=== PATIENT | female | born 1985 | race Caucasian/White ===

== ENCOUNTER 2020-09-07 10:39 | Outpatient (REF) | payer SELFPAY ==
[2020-09-07 14:23] LABS: Alanine Aminotransferase 19 U/L (0-31); Albumin Level 4.6 g/dL (3.5-5.0); Alkaline Phosphatase 39 U/L (39-117); Anion Gap 15 (12-20); Aspartate Amino Transferase 22 U/L (5-31); Bilirubin Total 0.3 mg/dL (0.0-1.0); Blood Urea Nitrogen 18 mg/dL (9-16); Calcium 9.3 mg/dL (8.4-10.2); Carbon Dioxide 26 mmol/L (22-29); Chloride 100 mmol/L (96-108); Cholesterol 202 mg/dL; Estimated Glomerular Filt Rate > 60; Glucose Random 80 mg/dL (60-115); HDL Cholesterol 60 mg/dL; LDL Cholesterol Calculated 131 mg/dl; Potassium 3.8 mmol/l (3.3-5.1); Sodium 137 mmol/L (135-145); Total Protein 7.4 g/dL (6.5-8.0); Triglycerides 55 mg/dL
[2020-09-07 15:46] LABS: Free T4 (Free Thyroxine) 0.94 ng/dL (0.71-1.85)
== END 2020-09-07 10:40 | disposition home or self-care (01) ==
LOC: HO.HMGCLDS 10:39
PROVIDERS: PCP Nurse Practitioner Family; Visit Provider Nurse Practitioner Family
DX: E03.9 Hypothyroidism, unspecified (principal)
CPT/HCPCS: 36415; 80053; 80061; 84439; 84443

== ENCOUNTER 2020-11-17 08:43 | Outpatient (REF) | payer BC, SELFPAY ==
[2020-11-17 17:49] LABS: TSH reflex Free T4 4.14 uIU/mL (0.32-4.0)
[2020-11-17 18:36] LABS: Free T4 (Free Thyroxine) 0.98 ng/dL (0.71-1.85)
== END 2020-11-17 08:44 | disposition home or self-care (01) ==
LOC: HO.HMGCLDS 08:43
PROVIDERS: PCP Nurse Practitioner Family; Visit Provider Nurse Practitioner Family
DX: E03.9 Hypothyroidism, unspecified (principal)
CPT/HCPCS: 36415; 84439; 84443

== ENCOUNTER 2022-09-21 18:21 | Outpatient (REF) | payer OTHER, SELFPAY ==
[2022-09-21 18:35] LABS: Appearance Urine Clear; Color Urine Yellow; Glucose Urine UA Negative (Negative); Leukocyte Esterase Urine Trace (Negative); Nitrite Urine Negative (Negative); PH 5.5 (5.0-9.0); UMIC TRIGGER UACC YES; Urine Blood Negative (Negative); Urine Ketones 15 mg/dL (Negative); Urine Protein Negative (Neg-Trace)
[2022-09-21 18:44] LABS: Bacteria Urine None Seen (None Seen); Hyaline Casts Urine 0-2 /LPF (0-2); RBC Urine 0-2 /HPF (0-2); Squamous Epithelial Cell Urine 0-2 /HPF (0-2); WBC Urine 0-5 /HPF (0-5)
== END 2022-09-21 18:22 | disposition home or self-care (01) ==
LOC: HO.LNP 18:21
PROVIDERS: Visit Provider Nurse Practitioner Family
DX: N39.0 Urinary tract infection, site not specified (principal)
CPT/HCPCS: 81001

== ENCOUNTER 2022-10-17 07:00 | Outpatient (REF) | payer OTHER, SELFPAY ==
[2022-10-17 11:31] LABS: MANUAL DIFF FLAG NO
[2022-10-17 11:38] LABS: Basophils Absolute Auto 0.1 X10*3/uL (0.0-0.2); Basophils Percent Auto 0.7 % (0-2); Eosinophils Absolute Auto 0.4 X10*3/uL (0.0-0.4); Eosinophils Percent Auto 5.3 % (0-4); Imm Gran Abs Auto 0.02 X10*3/uL (0.00-0.03); Imm Gran Pct Auto 0.3 % (0.0-0.4); Lymphocytes Absolute Auto 1.8 X10*3/uL (1.2-4.9); Lymphocytes Percent Auto 26.5 % (20-40); Mean Corpuscular HGB Conc 31.6 g/dl (31.0-35.0); Mean Corpuscular Hemoglobin 28.9 pg (27.0-33.0); Mean Corpuscular Volume 91.6 fL (80.0-98.0); Mean Platelet Volume 9.1 fL (9.4-12.3); Monocytes Absolute Auto 0.6 X10*3/uL (0.1-1.2); Monocytes Percent Auto 8.2 % (2-11); Platelet Count 507 X10*3/uL (160-400); Red Blood Count 4.15 X10*6/uL (4.20-5.50); Red Cell Distribution Width 13.6 % (11.0-16.0); White Blood Count 6.8 X10*3/uL (4.8-10.8)
[2022-10-17 12:02] LABS: Appearance Urine Clear; Color Urine Yellow; Glucose Urine UA Negative (Negative); Leukocyte Esterase Urine Negative (Negative); Nitrite Urine Negative (Negative); Specific Gravity - Urine 1.015 (1.005-1.025); Urine Blood Negative (Negative); Urine Ketones Negative (Negative); Urine Protein Negative (Neg-Trace)
[2022-10-17 12:04] LABS: Alanine Aminotransferase 51 U/L (0-31); Albumin Level 3.7 g/dL (3.5-5.0); Alkaline Phosphatase 61 U/L (39-117); Anion Gap 11 (12-20); Aspartate Amino Transferase 49 U/L (5-31); Bilirubin Total 0.3 mg/dL (0.0-1.0); Blood Urea Nitrogen 11 mg/dL (9-16); Calcium 9.2 mg/dL (8.4-10.2); Carbon Dioxide 31 mmol/L (22-29); Chloride 101 mmol/L (96-108); Cholesterol 221 mg/dL; Estimated Glomerular Filt Rate > 60; Glucose Fasting 96 mg/dL (60-99); HDL Cholesterol 44 mg/dL; LDL Cholesterol Calculated 141 mg/dl; Lipase 21 U/L (8-78); Potassium 4.3 mmol/L (3.3-5.1); Sodium 139 mmol/L (135-145); Total Protein 7.6 g/dL (6.5-8.0); Triglycerides 182 mg/dL
[2022-10-17 12:13] LABS: TSH reflex Free T4 15.66 uIU/mL (0.32-4.0)
[2022-10-17 14:15] LABS: Free T4 (Free Thyroxine) 0.89 ng/dL (0.71-1.85)
== END 2022-10-17 07:01 | disposition home or self-care (01) ==
LOC: HO.HMGCLDS 07:00
PROVIDERS: PCP Nurse Practitioner Family; Visit Provider Nurse Practitioner Family
DX: R10.9 Unspecified abdominal pain (principal); R74.8 Abnormal levels of other serum enzymes
CPT/HCPCS: 36415; 80053; 80061; 81003; 83690; 84439; 84443; 85025

== ENCOUNTER 2022-10-30 08:32 | Outpatient (REF) | payer OTHER, SELFPAY ==
--- NOTE | ~2022-10-30 | US_ITS ---
EXAMINATION: US ABDOMEN COMPLETE CLINICAL INFORMATION: Abnormal levels of other serum enzymes. COMPARISON: None available. TECHNIQUE: Real-time imaging of the abdominal viscera. FINDINGS: PANCREAS: Normal. ABDOMINAL AORTA: The proximal, mid, and distal segments are normal in caliber. INFERIOR VENA CAVA: Visualized portions are normal. LIVER: The liver is normal in size. The liver contour is normal. There is mild increased liver echogenicity. No focal hepatic lesion. There is no intrahepatic biliary duct dilatation seen. GALLBLADDER: Normal. The gallbladder is physiologically distended without evidence of stones, sludge, polyps, wall thickening or pericholecystic fluid. COMMON BILE DUCT: Normal in caliber measuring 0.3 cm in diameter. RIGHT KIDNEY: Normal. No hydronephrosis. No renal calculi or focal parenchymal lesions. The kidney measures 11.1 cm in maximum dimension. LEFT KIDNEY: Normal. No hydronephrosis. No renal calculi or focal parenchymal lesions. The kidney measures 10.4 cm in maximum dimension. SPLEEN: Normal. The spleen measures 9.1 cm in maximum dimension. FREE FLUID: None. US/US abdomen complete IMPRESSION: Mild hepatic steatosis without focal lesion. The rest of the abdominal ultrasound is unremarkable.
== END 2022-10-30 08:33 | disposition home or self-care (01) ==
LOC: HO.HMGCX 08:32
PROVIDERS: PCP Nurse Practitioner Family; Visit Provider Nurse Practitioner Family
DX: R74.8 Abnormal levels of other serum enzymes (principal)
CPT/HCPCS: 76700

== ENCOUNTER 2023-01-15 07:54 | Outpatient (REF) | payer OTHER, SELFPAY ==
[2023-01-15 11:15] LABS: MANUAL DIFF FLAG NO
[2023-01-15 11:29] LABS: Appearance Urine Clear; Color Urine Yellow; Glucose Urine UA Negative (Negative); Leukocyte Esterase Urine Negative (Negative); Nitrite Urine Negative (Negative); Urine Blood Negative (Negative); Urine Ketones Negative (Negative); Urine Protein Negative (Neg-Trace)
[2023-01-15 11:31] LABS: Basophils Percent Auto 0.3 % (0-2); Eosinophils Absolute Auto 0.1 X10*3/uL (0.0-0.4); Eosinophils Percent Auto 2.3 % (0-4); Hematocrit 38.2 % (37.0-47.0); Hemoglobin 12.2 g/dl (12.0-16.0); Imm Gran Abs Auto 0.03 X10*3/uL (0.00-0.03); Imm Gran Pct Auto 0.5 % (0.0-0.4); Lymphocytes Absolute Auto 2.2 X10*3/uL (1.2-4.9); Lymphocytes Percent Auto 35.8 % (20-40); Mean Corpuscular HGB Conc 31.9 g/dl (31.0-35.0); Mean Corpuscular Hemoglobin 29.1 pg (27.0-33.0); Mean Corpuscular Volume 91.2 fL (80.0-98.0); Mean Platelet Volume 9.6 fL (9.4-12.3); Monocytes Absolute Auto 0.5 X10*3/uL (0.1-1.2); Monocytes Percent Auto 7.4 % (2-11); Neutrophils Absolute Auto 3.3 x10*3/uL (2.0-8.3); Neutrophils Percent Auto 53.7 % (45-73); Platelet Count 398 X10*3/uL (160-400); Red Blood Count 4.19 X10*6/uL (4.20-5.50); White Blood Count 6.2 X10*3/uL (4.8-10.8)
[2023-01-15 11:54] LABS: Alanine Aminotransferase 17 U/L (0-31); Albumin Level 3.9 g/dL (3.5-5.0); Alkaline Phosphatase 56 U/L (39-117); Anion Gap 10 (12-20); Aspartate Amino Transferase 18 U/L (5-31); Bilirubin Total 0.4 mg/dL (0.0-1.0); Blood Urea Nitrogen 16 mg/dL (9-16); Calcium 9.1 mg/dL (8.4-10.2); Carbon Dioxide 27 mmol/L (22-29); Chloride 108 mmol/L (96-108); Cholesterol 164 mg/dL; Estimated Glomerular Filt Rate > 60; Glucose Fasting 95 mg/dL (60-99); HDL Cholesterol 52 mg/dL; LDL Cholesterol Calculated 91 mg/dl; Potassium 4.3 mmol/L (3.3-5.1); Sodium 141 mmol/L (135-145); Triglycerides 105 mg/dL
[2023-01-15 12:07] LABS: HBc Num1 0.09 S/CO (0.00-0.79); HBsAGNum1 0.48 S/CO (0.00-0.99); Hepatitis A Antibody IgM 0.25 Index (0-0.79); Hepatitis B Core Antibody Nonreactive (Nonreactive); Hepatitis B Surface Antigen Negative (Negative); ~HepC Num1 0.14 S/CO (0.00-0.79); ~Hepatitis A Antibody IgM Nonreactive (Nonreactive); ~Hepatitis B Surface Antibody REACTIVE (Nonreactive); ~Hepatitis C Antibody Nonreactive (Nonreactive)
[2023-01-15 12:18] LABS: TSH reflex Free T4 7.72 uIU/mL (0.32-4.0)
[2023-01-15 13:08] LABS: Free T4 (Free Thyroxine) 0.91 ng/dL (0.71-1.85)
== END 2023-01-15 07:55 | disposition home or self-care (01) ==
LOC: HO.HMGCLDS 07:54
PROVIDERS: PCP Nurse Practitioner Family; Visit Provider Nurse Practitioner Family
DX: Z00.00 Encounter for general adult medical examination without abnormal findings (principal); R74.8 Abnormal levels of other serum enzymes; E03.9 Hypothyroidism, unspecified; D75.839 Thrombocytosis, unspecified
CPT/HCPCS: 36415; 80053; 80061; 81003; 84439; 84443; 85025; 86704; 86706; 86709; 86803; 87340

== ENCOUNTER 2023-04-17 14:26 | Outpatient (REF) | payer OTHER, SELFPAY ==
[2023-04-17 17:17] LABS: TSH reflex Free T4 4.12 uIU/mL (0.32-4.0)
[2023-04-17 18:07] LABS: Free T4 (Free Thyroxine) 0.96 ng/dL (0.71-1.85)
== END 2023-04-17 14:27 | disposition home or self-care (01) ==
LOC: HO.HMGCLDS 14:26
PROVIDERS: PCP Nurse Practitioner Family; Visit Provider Nurse Practitioner Family
DX: E03.9 Hypothyroidism, unspecified (principal)
CPT/HCPCS: 36415; 84439; 84443

== ENCOUNTER 2023-05-14 10:54 | Outpatient (AMB) | payer OTHER, SELFPAY ==
[2023-05-14 11:20] VITALS: BP 118/68; PULSE 103; TEMP 36.6; O2SAT 98
--- NOTE | 2023-05-14 11:20 | AM.OFFWIN_ITS ---
Intake Vital Signs 05/14/23 11:20 Height 5 ft 7 in BP 118/68 Blood Pressure Location Lt brachial Position Sitting Pulse 103 H Pulse Source Pulse Oximeter Temp 97.9 F Temp Source Temporal Artery Scan Pulse Oximetry (%) 98 Intake Visit Reasons: EP Sinus Infection/Post nasal drip (masked) Intake Note: pt is here for c/o sinus infection and post nasal drip Patient Tobacco Use Status: Former Tobacco user Quit Date: 3 years ago Allergies gabapentin [GABAPENTIN] Allergy (Severe, Verified 05/14/23 11:22) Loss of vision, Vision changes erythromycin base [ERYTHROMYCIN BASE] Allergy (Unknown, Verified 05/14/23 11:22) Unknown Sulfa (Sulfonamide Antibiotics) [SULFA (SULFONAMIDE ANTIBIOTICS)] Allergy (Unknown, Verified 05/14/23 11:22) Unknown Do you need a note to return to daycare/school/sports/work: Yes HPI HPI Comments History of Present Illness Details 1127 38-year-old female presents with discomf ort overlying facial sinuses, sinus pressure, fatigue, malaise, myalgias for the past few days worsening. Patient tells me she has history of sinus infections and this feels the same. Also reporting postnasal drip. Denies chest pain, shortness of breath, nausea, vomiting, headache, vision changes, dizziness and weakness. No known sick contacts. Physical examination significant for discomfort with palpation of facial sinuses particularly over the maxillary sinus. Discomfort with word bending, pressure to face History and physical exam consistent with sinusitis. Unlikely meningitis, encephalitis, no signs of respiratory distress, PE, pneumonia, ACS. Plan will discharge with prednisone, antibiotics. Educated patient on diagnosis and treatment plan, answered all question, patient verbalizes understanding. At this time patient will be discharged home, advised to return with new or worsening symptoms. Educated on worrisome signs and symptoms and when to return. At this time I feel comfortable discharge home. [facility] Surgical History History of section Family History Father HTN (hypertension) Diabetes mellitus Mother Mental health disorder Maternal Grandfather Diabetes mellitus Maternal Grandmother No problems noted. Paternal Grandmother Diabetes mellitus Asthma Breast cancer Paternal Grandfather Diabetes mellitus Paternal Aunt Breast cancer Brother Mental health disorder Sister Mental health disorder Son No problems noted. Maternal Aunt Mental health disorder Social History Housing: Apartment Patient Tobacco Use Status: Former Tobacco user Quit Date: 3 years ago e-Cigarette/Vaping Use: Currently Using service: No Current occupational status: employed Current occupation: [employer] Current occupational exposures/hazards: Yes Cognitive needs: No Hearing needs: No Vision needs: No Review of Systems Const Details: Constitutional : No Weight loss, No Fever, No Chills, + Fatigue, + Malaise ENT/Mouth : No sore throat, No Rhinorrhea, + sinus pressure Eyes: No Eye Pain, No Swelling, No Redness Cardiovascular : No Chest Pain, No SOB, No Dyspnea on Exertion, No Orthopnea, No Edema, No Palpitations Respiratory : No Cough, No Sputum, No Wheezing Gastrointestinal : No Nausea, No Vomiting, No Diarrhea, No Constipation, No abdominal Pain, No Hematochezia, No Melena Genitourinary : No Dysuria, No Urinary Frequency, No Hematuria, Musculoskeletal : No joint pain, No Myalgias, No Joint Swelling Skin : No Skin Lesions, No rash Neuro : No Weakness, No Numbness, No Dizziness, No Headache Psych : No Anxiety/Panic, No Depression All other systems reviewed and are negative All systems reviewed & are unremarkable except as noted in HPI and below Physical Exam Vital Signs: Last Vital Signs Temp 97.9 F 05/14/23 11:20 Pulse 103 H 05/14/23 11:20 BP 118/68 05/14/23 11:20 Pulse Ox 98 05/14/23 11:20 vss Appearance: Alert.? Oriented X3.? No acute distress.? Head: Normocephalic, atraumatic, no step-offs or deformities + discomfort with palpation of facial sinuses particularly over the maxillary sinus. Discomfort with word bending, pressure to face Eyes: Pupils equal, round and reactive to light.? ENT: Pharynx normal.? Neck: Normal inspection.? Neck supple.? CVS: Rapid rate normal rhythm likely sinus tachycardia.? Pulses normal.? Respiratory: No respiratory distress.? Breath sounds normal.? Abdomen: Soft and nontender.? Skin: Skin warm and dry.? Normal skin color.? Normal skin turgor.? Extremities: No lower extremity edema.? No calf ttp. 5/5 strength to bilateral upper and lower extremities Back: No midline tenderness, no C-spine tenderness, full range of motion, no CVA tenderness bilaterally Neuro: Oriented X 3.? No motor deficit.? No sensory deficit. CN 2-12 intact Assessment & Plan Assessment & Plan (1) Sinusitis: Code(s): J32.9 - Chronic sinusitis, unspecified Plan Take your medications as prescribed. If you were prescribed antibiotics today, it is important that you take your medication to their entirety, do not skip any doses, do not finish them early. Follow-up with your primary care provider this week. Return to the emergency department with new or worsening symptoms. Such as fevers, chills, chest pain, shortness of breath, nausea, vomiting, dizziness, headache, vision changes, lethargy In case of emergency call 911 Medications: New amoxicillin-pot clavulanate 875-125 mg 1 tab PO BID 10 days 20 tabs 0RF fluconazole 150 mg PO Q3D 2 tabs 0RF 2 doses prednisone 20 mg PO DAILY 5 days 5 tabs 0RF Coding Level of Care Code Est Pt Level 3 (36147) Diagnoses Sinusitis J32.9
== END 2023-05-14 11:51 | disposition home or self-care (01) ==
PROVIDERS: PCP Nurse Practitioner Family; Visit Provider Physician Assistant
DX: J32.9 Chronic sinusitis, unspecified (principal)
CPT/HCPCS: 99213

== ENCOUNTER 2023-07-17 09:03 | Outpatient (AMB) | payer OTHER, SELFPAY ==
--- NOTE | 2023-07-17 09:07 | MHC.PC.OV ---
Vital Signs 07/17/23 09:08 Height 5 ft 7 in Weight 272 lb BMI 42.6 BP 110/72 Blood Pressure Location Rt brachial Position Sitting Pulse 87 Pulse Source Pulse Oximeter Pulse Oximetry (%) 97 Oxygen Delivery Method Room Air Intake Visit Reasons: Med issue Intake Note: Patient here for issues with levothyroxine, she states that within 20mins-30mind of taking medication she feels like she crashes has tried to change the time of day when she takes it. Allergies gabapentin [GABAPENTIN] Allergy (Severe, Verified 07/17/23 09:10) Loss of vision, Vision changes erythromycin base [ERYTHROMYCIN BASE] Allergy (Unknown, Verified 07/17/23 09:10) Unknown Sulfa (Sulfonamide Antibiotics) [SULFA (SULFONAMIDE ANTIBIOTICS)] Allergy (Unknown, Verified 07/17/23 09:10) Unknown Medication List - Last Reconciled 07/17/23 by Tomy Almodovar, [employer]- esomeprazole magnesium 20 mg PO DAILY levothyroxine 125 mcg PO DAILY 90 days omeprazole 20 mg PO DAILY Tobacco use date assessed: 10/16/22 HPI Med issue HPI Details Pt c/o increased fatigue. She reports that since having her levothyroxine increased to 125mcg (apr 2023) she has been constantly tired. Pt states that she has to take a long nap every day and her sleep cycle is inconsistent. ? relation to thyroid. Will order labs and refer for sleep study. Pt is interested in smoking cessation, will send nicotine lozenges. Denies fever, chills, and dizziness. [facility] Surgical History History of section Family History Father HTN (hypertension) Diabetes mellitus Mother Mental health disorder Maternal Grandfather Diabetes mellitus Maternal Grandmother No problems noted. Paternal Grandmother Diabetes mellitus Asthma Breast cancer Paternal Grandfather Diabetes mellitus Paternal Aunt Breast cancer Brother Mental health disorder Sister Mental health disorder Son No problems noted. Maternal Aunt Mental health disorder Social History Housing: Apartment Patient Tobacco Use Status: Former Tobacco user Quit Date: 3 years ago e-Cigarette/Vaping Use: Currently Using service: No Current occupational status: employed Current occupation: [employer] Current occupational exposures/hazards: Yes Cognitive needs: No Hearing needs: No Vision needs: No Questionnaire Thrive Questionnaire Date Thrive assessed: 10/16/22 FOZIA-7 AMB Questionnaire FOZIA-7 Date FOZIA - 7 assessed: 10/16/22 Source: Developed by Drs. Trey Tompkins, Fidelia Celis, Francesco Fuentes and colleagues, with an educational natalie from [employer]. Review of Systems Const Reports as per HPI Physical exam (Primary Care) Vital Signs: Last Vital Signs Pulse 87 07/17/23 09:08 BP 110/72 07/17/23 09:08 Pulse Ox 97 07/17/23 09:08 Oxygen Delivery Method Room Air 07/17/23 09:08 BMI result Body Mass Index 42.6 Tobacco/Smoking Status: Tobacco use Status Tobacco use date assessed 10/16/22 07/17/23 09:13 Patient Tobacco Use Status Former Tobacco user 07/17/23 09:13 e-Cigarette/Vaping Use Currently Using 07/17/23 09:13 Thrive Assessment: Date of Thrive Assessment Date Thrive assessed 10/16/22 07/17/23 09:13 Const General: cooperative Nutritional Appearance: obese morbidly obese Orientation/consciousness: patient oriented x3 Resp Effort & Inspection: normal respiratory effort Auscultation: clear to auscultation bilaterally Cardio Rate: regular rate Rhythm: regular rhythm Heart sounds: S1 normal heart sound present and S2 normal heart sound present Neuro General: patient oriented x3 Psych Appearance: grossly normal Mental Status: mental status grossly normal Speech and movement: Normal speech and movement present Affect: normal affect Attitude: cooperative Thought process: Normal thought process present Thought content: Normal thought content present Insight: Good insight present (Psych) Judgement: Good judgement present (Psych) Assessment and Plan Assessment & Plan (1) Fatigue: Code(s): R53.83 - Other fatigue Plan: Labs and sleep study ordered (2) Sleep apnea: Code(s): G47.30 - Sleep apnea, unspecified Plan: Labs and sleep study ordered Plan The patient agreed to the use of a medical manager for this encounter. Scribed for TYRONE Briceno by lorene Griggs scribe, on 07/17/2023 at 09:15 EST. Orders: Orders Complete Blood Count Auto Diff Today R5.83 - Other fatigue TSH reflex Free T4 Today R53.83 - Other fatigue UA CC w/rflx Micro + Cult Today R5.83 - Other fatigue IRON PROFILE Today R5.83 - Other fatigue Tick-borne Disease Molecular Today R53.83 - Other fatigue Comprehensive [place]. Panel Fast Today R5.83 - Other fatigue Ferritin Today R53.83 - Other fatigue Vitamin B12 and Folate Today R5.83 - Other fatigue Referrals Sleep Medicine Referral G47.30 - Sleep apnea, unspecified Medications: New nicotine (polacrilex) 2 mg buccal Q6H PRN 81 ea 0RF nicotine cravings Coding Level of Care Code Est Pt Level 3 (21272) Diagnoses Fatigue R5 Sleep apnea G47.30
[2023-07-17 09:08] VITALS: BP 110/72; PULSE 87; O2SAT 97; BMI 42.6
== END 2023-07-17 10:06 | disposition home or self-care (01) ==
PROVIDERS: PCP Nurse Practitioner Family; Visit Provider Nurse Practitioner Family
DX: R53.83 Other fatigue (principal); G47.30 Sleep apnea, unspecified
CPT/HCPCS: 99213

== ENCOUNTER 2023-07-17 09:36 | Outpatient (REF) | payer OTHER, SELFPAY ==
[2023-07-17 13:17] LABS: Appearance Urine Clear; Color Urine Yellow; Glucose Urine UA Negative (Negative); Leukocyte Esterase Urine Negative (Negative); MANUAL DIFF FLAG NO; Nitrite Urine Negative (Negative); PH 6.5 (5.0-9.0); Specific Gravity - Urine 1.025 (1.005-1.025); UMIC TRIGGER UACC YES; Urine Blood Moderate (2+) (Negative); Urine Ketones Negative (Negative); Urine Protein Negative (Neg-Trace)
[2023-07-17 13:30] LABS: Basophils Percent Auto 0.5 % (0-2); Eosinophils Absolute Auto 0.3 X10*3/uL (0.0-0.4); Eosinophils Percent Auto 5.1 % (0-4); Hematocrit 40.8 % (37.0-47.0); Imm Gran Abs Auto 0.02 X10*3/uL (0.00-0.03); Imm Gran Pct Auto 0.3 % (0.0-0.4); Lymphocytes Absolute Auto 1.8 X10*3/uL (1.2-4.9); Lymphocytes Percent Auto 30.8 % (20-40); Mean Corpuscular HGB Conc 31.9 g/dl (31.0-35.0); Mean Corpuscular Hemoglobin 29.1 pg (27.0-33.0); Mean Corpuscular Volume 91.5 fL (80.0-98.0); Mean Platelet Volume 9.4 fL (9.4-12.3); Monocytes Absolute Auto 0.5 X10*3/uL (0.1-1.2); Monocytes Percent Auto 7.7 % (2-11); Neutrophils Absolute Auto 3.3 x10*3/uL (2.0-8.3); Neutrophils Percent Auto 55.6 % (45-73); Platelet Count 423 X10*3/uL (160-400); Red Blood Count 4.46 X10*6/uL (4.20-5.50); Red Cell Distribution Width 13.2 % (11.0-16.0); White Blood Count 5.9 X10*3/uL (4.8-10.8)
[2023-07-17 13:40] LABS: Bacteria Urine None Seen (None Seen); Hyaline Casts Urine 0-2 /LPF (0-2); RBC Urine 0-2 /HPF (0-2); Squamous Epithelial Cell Urine 0-2 /HPF (0-2); WBC Urine 0-5 /HPF (0-5)
[2023-07-17 14:21] LABS: Folate 5.3 ng/mL (> or = 4.0); Vitamin B12 311 pg/mL (200-900)
[2023-07-17 14:25] LABS: Alanine Aminotransferase 17 U/L (0-31); Albumin Level 3.9 g/dL (3.5-5.0); Alkaline Phosphatase 56 U/L (39-117); Anion Gap 11 (12-20); Aspartate Amino Transferase 20 U/L (5-31); Bilirubin Total 0.3 mg/dL (0.0-1.0); Blood Urea Nitrogen 14 mg/dL (9-16); Calcium 8.9 mg/dL (8.4-10.2); Carbon Dioxide 26 mmol/L (22-29); Chloride 104 mmol/L (96-108); Estimated Glomerular Filt Rate > 60; Ferritin 22 ng/mL (10-122); Glucose Fasting 96 mg/dL (60-99); Iron 50 mcg/dL (30-160); Percent Iron Saturation 15 % (15-50); Potassium 4.3 mmol/L (3.3-5.1); Sodium 137 mmol/L (135-145); TSH reflex Free T4 11.25 uIU/mL (0.32-4.0); Total Iron Binding Capacity 335 mcg/dL (228-428); Total Protein 7.2 g/dL (6.5-8.0); Unsaturated Iron Binding 285 ug/dL
[2023-07-17 15:35] LABS: Free T4 (Free Thyroxine) 0.92 ng/dL (0.71-1.85)
[2023-07-21 02:13] LABS: A. Phagocytphilium DNA,RT-PCR NOT DETECTED (NOT DETECTED); Babesia Microti DNA, RT-PCR NOT DETECTED (NOT DETECTED); Borrelia Miyamotoi,DNA RT-PCR NOT DETECTED (NOT DETECTED); E.Chaffeensis DNA RT-PCR NOT DETECTED (NOT DETECTED); Lyme(Borrelia ssp)DNA RT-PCR NOT DETECTED (NOT DETECTED)
== END 2023-07-17 09:37 | disposition home or self-care (01) ==
LOC: HO.HMGCLDS 09:36
PROVIDERS: PCP Nurse Practitioner Family; Visit Provider Nurse Practitioner Family
DX: R53.83 Other fatigue (principal)
CPT/HCPCS: 36415; 80053; 81001; 82607; 82728; 82746; 83540; 84439; 84443; 85025; 87468; 87469; 87478; 87484; 87798

== ENCOUNTER 2023-07-20 08:05 | Outpatient (AMB) | payer OTHER, SELFPAY ==
[2023-07-20 08:52] VITALS: BP 118/68; PULSE 80; TEMP 36.6; O2SAT 98; BMI 42.6
--- NOTE | 2023-07-20 08:52 | MHC.OFFWIV ---
Intake Vital Signs 07/20/23 08:52 Height 5 ft 7 in Weight 272 lb BMI 42.6 BP 118/68 Blood Pressure Location Rt brachial Position Sitting Pulse 80 Pulse Source Pulse Oximeter Temp 97.8 F Temp Source Temporal Artery Scan Pulse Oximetry (%) 98 Oxygen Delivery Method Room Air Intake Visit Reasons: EST/thyroid issues/ here per JG(abdi) Intake Note: pt is here for c/o shaky and nauseous, possible reaction to 125 mcg levothyroxine Patient Tobacco Use Status: Former Tobacco user Quit Date: 3 years ago Allergies gabapentin [GABAPENTIN] Allergy (Severe, Verified 07/20/23 08:52) Loss of vision, Vision changes erythromycin base [ERYTHROMYCIN BASE] Allergy (Unknown, Verified 07/20/23 08:52) Unknown Sulfa (Sulfonamide Antibiotics) [SULFA (SULFONAMIDE ANTIBIOTICS)] Allergy (Unknown, Verified 07/20/23 08:52) Unknown Do you need a note to return to daycare/school/sports/work: Yes HPI HPI Comments History of Present Illness Details This is a very pleasant 38-year-old female who presents to the office today for sick visit. Patient states her PCP, Tomy Almodovar, advised her to come to the walk-in clinic today. Patient states she has been having thyroid issues for a while. She has been monitoring her TSH and increasing her Synthroid every 2 months. She states she was increased to 125mcg daily about 2 months ago and has been feeling unwell since then. She states she feels nauseous with dry heaves every morning. She fels significantly fatigued and feels as though she can sleep all day. She feels bloated every time she eats and she has gained a lot of weight. She also reports brain fog. She has an endocrinology referral in place but she has not heard from the office to make an appointment. She states she called the office yesterday with these complaints and her PCP informed her to come here. [facility] Surgical History History of section Family History Father HTN (hypertension) Diabetes mellitus Mother Mental health disorder Maternal Grandfather Diabetes mellitus Maternal Grandmother No problems noted. Paternal Grandmother Diabetes mellitus Asthma Breast cancer Paternal Grandfather Diabetes mellitus Paternal Aunt Breast cancer Brother Mental health disorder Sister Mental health disorder Son No problems noted. Maternal Aunt Mental health disorder Social History Housing: Apartment Patient Tobacco Use Status: Former Tobacco user Quit Date: 3 years ago e-Cigarette/Vaping Use: Currently Using service: No Current occupational status: employed Current occupation: [employer] Current occupational exposures/hazards: Yes Cognitive needs: No Hearing needs: No Vision needs: No Review of Systems Const All systems reviewed & are unremarkable except as noted in HPI and below Reports no additional complaints Eyes Reports no additional complaints ENT Reports no additional complaints Card Reports no additional complaints Resp Reports no additional complaints GI Reports no additional complaints Reports no additional complaints Musc Reports no additional complaints Skin/Breast Reports system reviewed and no additional complaints, except as documented Neuro Reports no additional complaints Psych Reports no additional complaints Endo Reports no additional complaints Ayden/Lymph Reports no additional complaints Aller/Immun Reports no additional complaints Physical Exam Vital Signs: Last Vital Signs Temp 97.8 F 07/20/23 08:52 Pulse 80 07/20/23 08:52 BP 118/68 07/20/23 08:52 Pulse Ox 98 07/20/23 08:52 Oxygen Delivery Method Room Air 07/20/23 08:52 BMI result Body Mass Index 42.6 Const Other: Vital signs reviewed. Constitutional: Non-toxic appearing. No acute distress. Well-developed and well-nourished. HEENT: Normocephalic and atraumatic. Skin: Warm and dry. No rashes or lesions noted. Neck: Full and painless range of motion. No cervical lymphadenopathy. Cardio: Regular rate. No lower extremity edema. No JVD. Pulmonary: No respiratory distress. No accessory muscle usage. Gastrointestinal: Soft, nontender, and nondistended in all 4 quadrants. Musculoskeletal: Normal range of motion in joints throughout the body. No deformity or other signs of injury. Neuro: Alert and oriented x4. Cranial nerves 2-12 grossly intact. No focal deficits appreciated. Psych: Normal mood and affect. Assessment & Plan Assessment & Plan (1) Hypothyroid: Code(s): E03.9 - Hypothyroidism, unspecified Plan: This is a 38-year-old female with past medical history significant for hypothyroidism who was advised to come to the walk-in by her PCP for a multitude of symptoms related to her hypothyroidism. She had her synthroid increased to 125mcg daily about 2 months ago and her most recent TSH actually went up. I explained to the patient that there is not much we can do at the walk-in other than repeat labs and symptomatic management. I told the patient I could order a repeat CBC, CMP and TSH but it would likley not change treatment or be beneficial as she just had labs checked on 07/17/23. Patient declined labs. I also offered the patient symptomatic management such as PO ondansetron for nausea but she declined as she has a lot of allergies and she does not want to [id number] medications when she knows the issue is her thyroid. She states she really only came here because her PCP informed her to come here and she is well-aware that the best course of action is to see an patrol sergeant sheriff's office to manage her hypothyroidism. Patient was extremely appreciative for the conversation. Coding Level of Care Code Est Pt Level 3 (60557) Diagnoses Hypothyroid E03.9
== END 2023-07-20 09:46 | disposition home or self-care (01) ==
PROVIDERS: PCP Nurse Practitioner Family; Visit Provider Physician Assistant Medical
DX: E03.9 Hypothyroidism, unspecified (principal)
CPT/HCPCS: 99213

== ENCOUNTER 2023-07-31 08:18 | Outpatient (REF) | payer OTHER, SELFPAY ==
[2023-07-31 11:39] LABS: Appearance Urine Cloudy; Color Urine Yellow; Glucose Urine UA Negative (Negative); Leukocyte Esterase Urine Large (3+) (Negative); Nitrite Urine Negative (Negative); Specific Gravity - Urine 1.015 (1.005-1.025); UMIC TRIGGER UACC YES; Urine Blood Trace (Negative); Urine Ketones Negative (Negative); Urine Protein Negative (Neg-Trace)
[2023-07-31 11:45] LABS: Bacteria Urine None Seen (None Seen); Hyaline Casts Urine 0-2 /LPF (0-2); Squamous Epithelial Cell Urine 0-2 /HPF (0-2); UACC Culture Trigger YES; WBC Urine >50 /HPF (0-5)
== END 2023-07-31 08:19 | disposition home or self-care (01) ==
LOC: HO.HMGCLDS 08:18
PROVIDERS: PCP Nurse Practitioner Family; Visit Provider Nurse Practitioner Family
DX: R53.83 Other fatigue (principal)
CPT/HCPCS: 81001; 87086; 87088; 87186

== ENCOUNTER 2023-08-10 14:26 | Outpatient (AMB) | payer OTHER, SELFPAY ==
--- NOTE | 2023-08-10 14:36 | MHC.OFFVIS ---
Intake Vital Signs 08/10/23 14:37 Height 5 ft 7 in Weight 271 lb BMI 42.4 BP 106/72 Blood Pressure Location Lt brachial Position Sitting Respiration 17 Pulse 101 H Pulse Source Pulse Oximeter Pulse Oximetry (%) 76 L Oxygen Delivery Method Room Air Intake Visit Reasons: I-TUNNEL KILN REPAIRER: Sleep apnea (08/08 LVM+LTR)-Confirmed Intake Note: Pt presents for a new pt evaluation for snoring and hypersomnolence. Canteen Attendant Required: No Allergies gabapentin [GABAPENTIN] Allergy (Severe, Verified 08/10/23 14:36) Loss of vision, Vision changes erythromycin base [ERYTHROMYCIN BASE] Allergy (Unknown, Verified 08/10/23 14:36) Unknown Sulfa (Sulfonamide Antibiotics) [SULFA (SULFONAMIDE ANTIBIOTICS)] Allergy (Unknown, Verified 08/10/23 14:36) Unknown HPI HPI Comments History of Present Illness Details 38 y/o female patient with hypothyroid presents for new in-person visit for sleep consultation. Pt reports that her thyroid medication changed 5 times so far, but her thyroid level has not been improved. Pt gained a lot of wt, but not sure how much. She always feels tired, can fall asleep anytime and anywhere. And her primary care suggested to have sleep study to r/o sleep apnea. Sleep questionnaire: Have you ever been diagnosed with a sleep disorder? No. Have you ever had a sleep study in the past? No. Have you ever been treated for a sleep disorder? No. Do you take medications for a sleep disorder? No. Do you snore? Yes, when she has congestion. Do you wake up gasping at night? No. Do you have episodes of apneas? No. If yes, are they witnessed? No. Do you have episodes of nocturnal chest pain or dyspnea? No. Do you have difficulty initiating sleep? No. Do you have difficulty maintaining sleep? No. Do you wake up tired? Yes. Do you have headaches upon awakening? No. Do you wake up with dry mouth or throat? Yes, sometimes. Do you have GERD? Yes. Do you have nocturia? No. Do you have nocturnal leg cramps? Yes, sometimes. Do you have symptoms of restless legs? Yes, occasionally. Do you act out your dreams? No. Sleep hygiene questionnaire: What is your usual sleep routine? N/A, Usual bedtime is at N/A ; Usual wake up time is at 6:30 am. Do you take naps? multiple times for 4-6 hrs. Is your sleep environment cool, dark, and quiet? Yes. Do you exercise? No. Do you take caffeine or other stimulants? 1 glass of ice coffee in the morning. Do you use electronics in bed? Yes, sometimes. What is your work schedule? 10 am to 1:30 pm and then 5 pm -2 am Hypersomnolence questionnaire: Do you have daytime tiredness or fatigue? Yes. Do you easily fall asleep when inactive? Yes. Have you ever had episodes of sudden weakness? No. Have you ever had episodes of sudden weakness associated with strong emotions? No. PFSH Surgical History History of section Family History Father HTN (hypertension) Diabetes mellitus Mother Mental health disorder Maternal Grandfather Diabetes mellitus Maternal Grandmother No problems noted. Paternal Grandmother Diabetes mellitus Asthma Breast cancer Paternal Grandfather Diabetes mellitus Paternal Aunt Breast cancer Brother Mental health disorder Sister Mental health disorder Son No problems noted. Maternal Aunt Mental health disorder Social History Housing: Apartment Patient Tobacco Use Status: Former Tobacco user Quit Date: 3 years ago e-Cigarette/Vaping Use: Currently Using service: No Current occupational status: employed Current occupation: [employer] Current occupational exposures/hazards: Yes Cognitive needs: No Hearing needs: No Vision needs: No Review of Systems Const All systems reviewed & are unremarkable except as noted in HPI and below Physical Exam Vital Signs: Last Vital Signs Pulse 101 H 08/10/23 14:37 Resp 17 08/10/23 14:37 BP 106/72 08/10/23 14:37 Pulse Ox 76 L 08/10/23 14:37 Oxygen Delivery Method Room Air 08/10/23 14:37 BMI result Body Mass Index 42.4 Const General: cooperative Nutritional Appearance: obese Orientation/consciousness: patient oriented x3 Neck Neck: Yes full ROM and Yes supple Resp Effort & Inspection: normal respiratory effort and able to speak in complete sentences Neuro General: patient oriented x3 and gait normal Cranial nerves: Yes CN's II-XII intact bilaterally Cognition (Neuro): normal cognition Gait exam (Neuro): Normal gait present Motor exam (neuro): 5/5 motor strength present throughout, Pronator motor function not present and no tremor noted Psych Appearance: grossly normal Mental Status: mental status grossly normal Speech and movement: Normal speech and movement present Affect: normal affect Attitude: cooperative Assessment & Plan Assessment & Plan (1) Daytime sleepiness: Code(s): R40.0 - Somnolence (2) Sleep apnea: Code(s): G47.30 - Sleep apnea, unspecified (3) Fatigue: Code(s): R53.83 - Other fatigue (4) Snoring: Code(s): R06.83 - Snoring Plan Pt is advised to undergo home sleep study to assess for sleep apnea. Will f/u with pt after study to discuss results and appropriate treatment options. Pt to call with any worsening concerns or questions. Orders: Orders RT home sleep study Today G47.30 - Sleep apnea, unspecified, R40.0 - Somnolence Coding Level of Care Code New Pt Level 3 (53140) Diagnoses Daytime sleepiness R40.0 Sleep apnea G47.30 Fatigue R53.83 Snoring R06.83
[2023-08-10 14:37] VITALS: BP 106/72; PULSE 101; RESP 17; O2SAT 76; BMI 42.4
== END 2023-08-10 15:02 | disposition home or self-care (01) ==
PROVIDERS: PCP Nurse Practitioner Family; Visit Provider Nurse Practitioner Family
DX: R40.0 Somnolence (principal); G47.30 Sleep apnea, unspecified; R53.83 Other fatigue; R06.83 Snoring
CPT/HCPCS: 99203

== ENCOUNTER → 2023-08-10 14:26 | Outpatient (BNVA) | payer OTHER, SELFPAY | PROVIDERS: PCP Nurse Practitioner Family; Visit Provider Nurse Practitioner Family | DX: R40.0 Somnolence (principal); G47.30 Sleep apnea, unspecified; R53.83 Other fatigue; R06.83 Snoring | CPT/HCPCS: 99202 ==

== ENCOUNTER 2023-08-14 14:09 | Outpatient (REF) | payer OTHER, SELFPAY ==
--- NOTE | ~2023-08-14 | US_ITS ---
EXAMINATION: US THYROID CLINICAL INFORMATION: Hypothyroidism, unspecified. COMPARISON: None available. TECHNIQUE: Linear transducer castelan-scale and color Doppler examination with attention to the region of the thyroid. FINDINGS: SIZE: Measurements of the thyroid lobes and nodules are given in sagittal, anteroposterior and transverse dimensions respectively. Right Thyroid Lobe: 5.8 x 2.2 x 2.2 cm, volume 14.7 mL. Parenchyma: The gland echotexture is heterogeneous. Thyroid vascularity is increased. Left Thyroid Lobe: 4.0 x 1.6 x 1.6 cm, volume 5.4 mL. Parenchyma: The gland echotexture is heterogeneous. Thyroid vascularity is increased. Isthmus: 0.6 cm in maximum AP dimension. Estimated total number of nodules greater than or equal to 1 cm: 0. 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 Location: Right mid medial. Size: 0.8 x 0.6 x 0.7 cm, volume 0.19 mL. Nodule characteristics: Composition: Solid (2). Echogenicity: Hyperechoic (1). Shape: Not taller than wide (0). Margins: Smooth (0). Echogenic Foci: None (0). ACR TI-RADS total points: 3 ACR TI-RADS category: 3 2. Location: Right inferior. Size: 0.6 x 0.6 x 0.6 cm, volume 0.11 mL. Nodule characteristics: Composition: Solid (2). Echogenicity: Hyperechoic (1). Shape: Not taller than wide (0). Margins: Smooth (0). Echogenic Foci: None (0). ACR TI-RADS total points: 3 ACR TI-RADS category: 3 NODES: Right neck 1.5 x 0.4 x 1.1 cm level 3 atypical node. Right neck borderline atypical level 2 node measures 1.4 x 0.7 x 1.8 cm and appears atypical with cortical thickening. Right neck 1.4 x 0.8 x 1.0 cm level 4 node with echogenic hilum and borderline cortical thickening. Left neck 1.4 x 0.6 x 1.5 cm level 2 atypical node. Left neck 1.9 x 0.8 x 1.5 cm level 2 node with echogenic hilum and borderline cortical thickening. US/US thyroid IMPRESSION: 1. Diffusely heterogeneous thyroid gland. 2. Right medial mid pole 0.8 cm TR 3 thyroid nodule. 3. Bilateral atypical neck lymph nodes as detailed above. Correlation with clinical exam recommended to determine further management including possible additional imaging with contrast-enhanced CT scan of the neck. Recommend follow-up ultrasound in 3 months. ACR TI-RADS RECOMMENDATION REFERENCE: Ultrasound-guided fine-needle aspiration, followup ultrasound, no further follow up. * TR1 (0 point) and TR2 (2 points): No FNA or follow up. * TR3 (3 points): FNA if more than or equal to 2.5 cm in maximum dimension, followup ultrasound in 1, 3 and 5 years if 1.5 to 2.4 cm in maximum dimension. * TR4 (4-6 points): FNA if more than or equal to 1.5 cm in maximum dimension, followup ultrasound in 1, 2, 3 and 5 years if 1 to 1.4 cm in maximum dimension. * TR5 (more than or equal to 7 points): FNA if more than or equal to 1 cm in maximum dimension, followup ultrasound every year for 5 years if 0.5 to 0.9 cm in maximum dimension. * TR3, TR4 or TR5 nodules that are below the size threshold for followup receive no follow up.
== END 2023-08-14 14:10 | disposition home or self-care (01) ==
LOC: HO.HMGCX 14:09
PROVIDERS: PCP Nurse Practitioner Family; Visit Provider Nurse Practitioner Family
DX: E03.9 Hypothyroidism, unspecified (principal)
CPT/HCPCS: 76536

== ENCOUNTER → 2023-08-22 15:09 | Outpatient (REF) | payer OTHER, SELFPAY | LOC: HO.SL 15:09 | PROVIDERS: PCP Nurse Practitioner Family; Visit Provider Nurse Practitioner Family | DX: G47.30 Sleep apnea, unspecified (principal); R40.0 Somnolence; R06.83 Snoring | CPT/HCPCS: 95806 ==

== ENCOUNTER → 2023-08-22 15:21 | Outpatient (BNV) | payer OTHER, SELFPAY | PROVIDERS: PCP Nurse Practitioner Family; Visit Provider Psychiatry & Neurology Neurology | DX: R06.83 Snoring (principal); R40.0 Somnolence | CPT/HCPCS: 95806 ==

== ENCOUNTER 2023-09-20 15:55 | Outpatient (REF) | payer OTHER, SELFPAY ==
--- NOTE | ~2023-09-20 | CT_ITS ---
EXAMINATION: CT SOFT TISSUE NECK WITH CONTRAST CLINICAL INFORMATION: 38-year-old female with atypical neck lymph nodes suspected on previous thyroid ultrasound. COMPARISON: 08/14/2023 thyroid ultrasound. TECHNIQUE: Following the intravenous administration of 75 mL of Omnipaque 350 intravenous contrast, helical imaging was performed in the axial plane with generation of coronal and sagittal reformatted images. This CT examination was performed using dose optimization techniques as appropriate, variously including the following: *Automated exposure control *Adjustment of mA and/or kV according to patient size (this includes techniques or standardized protocols for targeted exams where dose is matched to indication/reason for exam; i.e. extremities or head) *Use of iterative reconstruction technique DLP: 332 mGy-cm FINDINGS: Skull Base: The bony skull base and visualized calvarium appear grossly intact.?Limited assessment of the visualized intracranial and orbital soft tissue structures is unremarkable.?The visualized mastoids, middle ear cavities and sinonasal cavity are clear. Suprahyoid Neck: The visceral spaces appear smoothly contoured without nodularity or abnormal enhancement. The retropharynx, volunteer assistant and parapharyngeal spaces appear symmetric and unremarkable. The soft palate, oral tongue, base of the tongue and floor of the mouth structures appear symmetric and intact. The major salivary glands are normal in morphology and attenuation. There are multiple, nonenlarged, nonpathologic-appearing bilateral level Ib and left-sided level Ia lymph nodes. There is a 1.3 x 0.8 cm level IIa lymph node on the right which is slightly plump and appears somewhat thickened along its inferior margin without a definite fatty hilum. Adjacent to this are a few small, normal-sized level IIa lymph nodes. There is also a 1.5 x 0.9 cm level IIa lymph node on the right without a definite fatty hilum. There is a 1.6 cm greatest long axis level IIa lymph node on the left which has a fatty hilum but displays some degree of cortical thickening. Other small, nonenlarged bilateral level IIa and IIb lymph nodes are seen at this level. Vallecula and epiglottis appear smoothly contoured. Lingual tonsils enhance normally. Infrahyoid Neck: The hypopharynx and larynx appear within normal limits. The thyroid gland is partially obscured by artifact from the shoulders. See previous ultrasound report. Left lobe appears diminutive. The right thyroid lobe projects posteriorly into the right tracheoesophageal groove. A few nonenlarged bilateral level IIIb and IIIa lymph nodes are noted. There is a single mildly enlarged level IIIb lymph node on the right measuring 1.2 x 0.6 m. There are nonenlarged bilateral level IV lymph nodes. Vascular: There is opacification of the major arterial and venous structures. Upper Chest: The visualized lung parenchyma is grossly clear. Visualized mediastinum is grossly unremarkable. Visualized axillary and subpectoral regions demonstrate no definite lymphadenopathy. Incompletely visualized. Skeletal: Mild lordotic reversal centered at C4-C5. Skeletal structures are otherwise intact. Other Comments: None. CT/CT soft tissue neck w IV con IMPRESSION: 1. The findings are consistent with cervical lymphadenopathy as detailed above. Differential diagnostic considerations include infectious and inflammatory disease. Neoplastic disease cannot be excluded. Follow up as per clinical indications. 2. Incomplete visualization of the thyroid gland due to artifact.
[2023-09-20] MEDS: iohexoL 350 MG/ML 100 ML INFUS..BTL IV (16:26)
== END 2023-09-20 15:56 | disposition home or self-care (01) ==
LOC: HO.CT 15:55
PROVIDERS: PCP Nurse Practitioner Family; Visit Provider Nurse Practitioner Family
DX: R59.0 Localized enlarged lymph nodes (principal)
CPT/HCPCS: 70491; Q9967

== ENCOUNTER 2023-10-25 13:10 | Outpatient (AMB) | payer OTHER, SELFPAY ==
--- NOTE | 2023-10-25 13:12 | AM.OFFWIN_ITS ---
Intake Vital Signs 10/25/23 13:13 Height 5 ft 7 in Weight 279 lb BMI 43.7 BP 120/90 H Blood Pressure Location Lt brachial Position Sitting Pulse 96 Pulse Source Pulse Oximeter Temp 97.9 F Temp Source Oral Pulse Oximetry (%) 96 Oxygen Delivery Method Room Air Intake Visit Reasons: EP ?Sinus Infection Intake Note: Patient here for possible sinus infection that started Sunday and has been out of work this week. Patient Tobacco Use Status: Former Tobacco user Quit Date: 3 years ago Allergies gabapentin [GABAPENTIN] Allergy (Severe, Verified 10/25/23 13:16) Loss of vision, Vision changes erythromycin base [ERYTHROMYCIN BASE] Allergy (Unknown, Verified 10/25/23 13:16) Unknown Sulfa (Sulfonamide Antibiotics) [SULFA (SULFONAMIDE ANTIBIOTICS)] Allergy (Unknown, Verified 10/25/23 13:16) Unknown Do you need a note to return to daycare/school/sports/work: Yes HPI HPI Comments History of Present Illness Details 38 y/o female who presents to walk in [facility] with c/o Possible sinus infection since Sunday. Reports dry cough and headaches. 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 Denies fevers, chills, nausea or vomiting. [facility] Medical History (Updated 10/01/23 @ 08:19 by Tomy Almodovar [facility]) Right thyroid nodule Surgical History History of section Family History Father HTN (hypertension) Diabetes mellitus Mother Mental health disorder Maternal Grandfather Diabetes mellitus Maternal Grandmother No problems noted. Paternal Grandmother Diabetes mellitus Asthma Breast cancer Paternal Grandfather Diabetes mellitus Paternal Aunt Breast cancer Brother Mental health disorder Sister Mental health disorder Son No problems noted. Maternal Aunt Mental health disorder Social History Housing: Apartment Patient Tobacco Use Status: Former Tobacco user Quit Date: 3 years ago e-Cigarette/Vaping Use: Currently Using service: No Current occupational status: employed Current occupation: [employer] Current occupational exposures/hazards: Yes Cognitive needs: No Hearing needs: No Vision needs: No Review of Systems Const All systems reviewed & are unremarkable except as noted in HPI and below Physical Exam Vital Signs: Last Vital Signs Temp 97.9 F 10/25/23 13:13 Pulse 96 10/25/23 13:13 BP 120/90 H 10/25/23 13:13 Pulse Ox 96 10/25/23 13:13 Oxygen Delivery Method Room Air 10/25/23 13:13 BMI result Body Mass Index 43.7 Const General: comfortable and no acute distress Nutritional Appearance: obese Orientation/consciousness: patient oriented x3 HEENT Head: Yes normocephalic Ears: external ears normal and TM abnormal with fluid behind the TM General nose exam: Normal external nose present, Abnormal mucous membranes and turbinates present boggy and erythematous and Nasal discharge present Face and sinus: Yes sinuses nontender Mouth: moist mucous membranes Throat: Yes posterior oropharynx normal Resp Effort & Inspection: normal respiratory effort and able to speak in complete sentences Auscultation: clear to auscultation bilaterally, no crackles, no rales, no rhonchi and no wheezes Cardio Rate: regular rate Rhythm: regular rhythm Neuro General: patient oriented x3, gait normal and moves all extremities Psych Speech and movement: Normal speech and movement present Attitude: cooperative Assessment & Plan Assessment & Plan (1) Acute rhinosinusitis: Code(s): J01.90 - Acute sinusitis, unspecified Plan: - No need for Abx - OTC cough/cold remedies - Rest and hydrate with warm fluids - Acetaminophen for pain relief. Orders: Orders SARS-CoV2/FLU/RSV Today J01.90 - Acute sinusitis, unspecified Coding Level of Care Code Est Pt Level 3 (04040) Diagnoses Acute rhinosinusitis J01.90 Time Spent (min) 15
[2023-10-25 13:13] VITALS: BP 120/90; PULSE 96; TEMP 36.6; O2SAT 96; BMI 43.7
== END 2023-10-25 14:58 | disposition home or self-care (01) ==
PROVIDERS: PCP Nurse Practitioner Family; Visit Provider Nurse Practitioner Family
DX: J01.90 Acute sinusitis, unspecified (principal)
CPT/HCPCS: 99213

== ENCOUNTER 2023-10-25 13:45 | Outpatient (REF) | payer OTHER, SELFPAY ==
[2023-10-25 17:37] LABS: Influenza A PCR NEGATIVE (Negative); Influenza B PCR NEGATIVE (Negative); Resp Syncy Virus RNA Qual PCR NEGATIVE (Negative); SARS COV2 PCR INHOUSE NEGATIVE (Negative)
== END 2023-10-25 13:46 | disposition home or self-care (01) ==
LOC: HO.LAB 13:45
PROVIDERS: Visit Provider Nurse Practitioner Family
DX: J01.90 Acute sinusitis, unspecified (principal)
CPT/HCPCS: 0241U

== ENCOUNTER → 2023-11-09 19:30 | Outpatient (REF) | payer OTHER, SELFPAY | LOC: HO.SL 19:30 | PROVIDERS: PCP Nurse Practitioner Family; Visit Provider Nurse Practitioner Family | DX: R06.83 Snoring (principal); R40.0 Somnolence; G47.30 Sleep apnea, unspecified | CPT/HCPCS: 95810 ==

== ENCOUNTER → 2023-11-09 21:50 | Outpatient (BNV) | payer OTHER, SELFPAY | PROVIDERS: PCP Nurse Practitioner Family; Visit Provider Psychiatry & Neurology Neurology | DX: G47.33 Obstructive sleep apnea (adult) (pediatric) (principal) | CPT/HCPCS: 95810 ==

== ENCOUNTER 2024-04-25 09:01 | Outpatient (AMB) | payer OTHER, SELFPAY ==
--- NOTE | 2024-04-25 09:08 | MHC.OFFWIV ---
Intake Vital Signs 04/25/24 09:17 Height 5 ft 7 in Weight 281 lb BMI 44.0 BP 122/78 Blood Pressure Location Rt brachial Position Sitting Pulse 81 Pulse Source Pulse Oximeter Pulse Oximetry (%) 98 Oxygen Delivery Method Room Air Intake Visit Reasons: EP-Sinus infection Intake Note: Patient here for sinus pressure in face which has been present for 3 days. Patient Tobacco Use Status: Former Tobacco user Allergies gabapentin [GABAPENTIN] Allergy (Severe, Verified 04/25/24 09:18) Loss of vision, Vision changes erythromycin base [ERYTHROMYCIN BASE] Allergy (Unknown, Verified 04/25/24 09:18) Unknown Sulfa (Sulfonamide Antibiotics) [SULFA (SULFONAMIDE ANTIBIOTICS)] Allergy (Unknown, Verified 04/25/24 09:18) Unknown Do you need a note to return to daycare/school/sports/work: No HPI EP-Sinus infection HPI Details This is a 38-year-old patient who reports to the walk-in clinic today with report of maxillary sinus pressure and pain for the last 3-4 days. Has tried ibuprofen and Sudafed at home without relief. Reports a headache which is somewhat alleviated with the ibuprofen. Denies any known exposure to sick contacts. Denies any fever or chills. Denies any respiratory or GI symptoms. [facility] Medical History Right thyroid nodule Surgical History History of section Family History Father HTN (hypertension) Diabetes mellitus Mother Mental health disorder Maternal Grandfather Diabetes mellitus Maternal Grandmother No problems noted. Paternal Grandmother Diabetes mellitus Asthma Breast cancer Paternal Grandfather Diabetes mellitus Paternal Aunt Breast cancer Brother Mental health disorder Sister Mental health disorder Son No problems noted. Maternal Aunt Mental health disorder Social History Housing: Apartment Patient Tobacco Use Status: Former Tobacco user e-Cigarette/Vaping Use: Currently Using service: No Current occupational status: employed Current occupation: [employer] Current occupational exposures/hazards: Yes Cognitive needs: No Hearing needs: No Vision needs: No Review of Systems Const All systems reviewed & are unremarkable except as noted in HPI and below Physical Exam Vital Signs: Last Vital Signs Pulse 81 04/25/24 09:17 BP 122/78 04/25/24 09:17 Pulse Ox 98 04/25/24 09:17 Oxygen Delivery Method Room Air 04/25/24 09:17 BMI result Body Mass Index 44.0 Const General: cooperative, healthy appearing and no acute distress Limitations: no limitations HEENT Head: Yes normal to inspection and Yes normocephalic Ears: hearing grossly normal bilaterally, external ears normal and TM's normal bilaterally General nose exam: Normal external nose present Face and sinus: Yes sinus tenderness (maxillary and frontal) Mouth: Normal oral and palatal mucosa present Throat: Yes posterior oropharynx normal Neck Neck: Yes no lymphadenopathy Resp Effort & Inspection: normal respiratory effort Auscultation: clear to auscultation bilaterally Cardio Rate: regular rate Rhythm: regular rhythm Skin General skin exam: no rashes or lesions noted Extrem General: Yes capillary refill normal and Yes no clubbing, cyanosis or edema Psych Appearance: grossly normal Mental Status: mental status grossly normal Speech and movement: Normal speech and movement present Assessment & Plan Assessment & Plan (1) Acute maxillary sinusitis: Code(s): J01.00 - Acute maxillary sinusitis, unspecified Qualifiers: Recurrence: non-recurrent Qualified Code(s): J01.00 - Acute maxillary sinusitis, unspecified Plan: Patient has done well in previous years for similar illness on Augmentin. Will start this b.i.d. x7 days. She also states she always gets vaginal yeast infection following antibiotic use. Will send fluconazole. We reviewed indications, use, possible side effects of medications. She can continue to use NSAIDs and decongestants as needed. If she does not improve with treatment, or symptoms worsen/new symptoms develop, she can return to the clinic for further evaluation. She verbalizes understanding and agrees to plan. Medications: Changed From amoxicillin-pot clavulanate 875-125 mg 1 tab PO BID 10 days 20 tabs 0RF J01.00 - Acute maxillary sinusitis, unspecified To amoxicillin-pot clavulanate 875-125 mg Take one tablet by mouth twice a day for 7 days. 1 tab PO BID 7 days 14 tabs 0RF J01.00 - Acute maxillary sinusitis, unspecified From fluconazole 150 mg PO Q3D 2 doses 2 tabs 0RF To fluconazole Take one tablet by mouth at the start of symptoms. Take second tab 3 days later if symptoms persist. 150 mg PO Q3D 2 doses 2 tabs 0RF Coding Level of Care Code Est Pt Level 4 (78626) Diagnoses Acute non-recurrent maxillary sinusitis J01.00 Recurrence: non-recurrent
[2024-04-25 09:17] VITALS: BP 122/78; PULSE 81; O2SAT 98; BMI 44.0
== END 2024-04-25 10:04 | disposition home or self-care (01) ==
PROVIDERS: PCP Nurse Practitioner Family; Visit Provider Nurse Practitioner Family
DX: J01.00 Acute maxillary sinusitis, unspecified (principal)
CPT/HCPCS: 99214

== ENCOUNTER 2024-05-13 09:32 | Outpatient (AMB) | payer OTHER, SELFPAY ==
[2024-05-13 09:37] VITALS: BP 126/74; PULSE 82; O2SAT 97; BMI 44.2
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
== END 2024-05-13 10:43 | disposition home or self-care (01) ==
PROVIDERS: PCP Nurse Practitioner Family; Visit Provider Nurse Practitioner Family
DX: M50.90 Cervical disc disorder, unspecified, unspecified cervical region (principal); V89.2XXA Person injured in unspecified motor-vehicle accident, traffic, initial encounter; R20.0 Anesthesia of skin

== ENCOUNTER → 2024-05-13 09:32 | Outpatient (BNVA) | payer OTHER, SELFPAY | PROVIDERS: PCP Nurse Practitioner Family; Visit Provider Nurse Practitioner Family ==

== ENCOUNTER 2024-05-13 10:06 | Outpatient (REF) | payer OTHER, SELFPAY ==
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
== END 2024-05-13 10:07 | disposition home or self-care (01) ==
LOC: HO.HMGCX 10:06
PROVIDERS: PCP Nurse Practitioner Family; Visit Provider Nurse Practitioner Family
DX: R20.0 Anesthesia of skin (principal); M50.90 Cervical disc disorder, unspecified, unspecified cervical region; V89.2XXA Person injured in unspecified motor-vehicle accident, traffic, initial encounter
CPT/HCPCS: 72040; 96127

== ENCOUNTER 2024-06-03 08:08 | Outpatient (REF) | payer OTHER, SELFPAY ==
[2024-06-03 10:57] LABS: Influenza A PCR NEGATIVE (Negative); Influenza B PCR NEGATIVE (Negative); Resp Syncy Virus RNA Qual PCR NEGATIVE (Negative); SARS COV2 PCR INHOUSE NEGATIVE (Negative)
== END 2024-06-03 08:09 | disposition home or self-care (01) ==
LOC: HO.LAB 08:08
PROVIDERS: Physician Assistant; PCP Nurse Practitioner Family
DX: R09.89 Other specified symptoms and signs involving the circulatory and respiratory systems (principal); J06.9 Acute upper respiratory infection, unspecified
CPT/HCPCS: 0241U; 87070; 87147; 87880; 99212

== ENCOUNTER 2024-06-03 08:08 | Outpatient (AMB) | payer OTHER, SELFPAY ==
[2024-06-03 08:14] VITALS: BP 128/84; PULSE 90; O2SAT 98
--- NOTE | 2024-06-03 08:14 | MHC.OFFWIV ---
Intake Vital Signs 06/03/24 08:14 Weight 286 lb BP 128/84 Blood Pressure Location Rt brachial Position Sitting Pulse 90 Pulse Source Pulse Oximeter Pulse Oximetry (%) 98 Oxygen Delivery Method Room Air Intake Visit Reasons: EP LT ear blocked & throat hurts Intake Note: Patient here for sore throat and left ear blockage since sunday Patient Tobacco Use Status: Former Tobacco user Allergies gabapentin [GABAPENTIN] Allergy (Severe, Verified 06/03/24 08:20) Loss of vision, Vision changes erythromycin base [ERYTHROMYCIN BASE] Allergy (Unknown, Verified 06/03/24 08:20) Unknown Sulfa (Sulfonamide Antibiotics) [SULFA (SULFONAMIDE ANTIBIOTICS)] Allergy (Unknown, Verified 06/03/24 08:20) Unknown HPI HPI Comments History of Present Illness Details Patient is a 39-year-old female complaining of feeling like there is a piece of cotton in the back of her throat every time she swallows, sore throat and left ear blockage for the last 3 days. She denies any fevers, shortness of breath, cough. She tells me she does have seasonal allergies and takes Xyzal daily. She states she can not tolerate taking Flonase. She tells me when she gets sinus infections she never really feels sinus pain. [facility], [facility] Medical History Right thyroid nodule Surgical History History of section Family History Father HTN (hypertension) Diabetes mellitus Mother Mental health disorder Maternal Grandfather Diabetes mellitus Maternal Grandmother No problems noted. Paternal Grandmother Diabetes mellitus Asthma Breast cancer Paternal Grandfather Diabetes mellitus Paternal Aunt Breast cancer Brother Mental health disorder Sister Mental health disorder Son No problems noted. Maternal Aunt Mental health disorder Social History Housing: Apartment Patient Tobacco Use Status: Former Tobacco user e-Cigarette/Vaping Use: Currently Using service: No Current occupational status: employed Current occupation: [employer] Current occupational exposures/hazards: Yes Cognitive needs: No Hearing needs: No Vision needs: Yes Review of Systems Const All systems reviewed & are unremarkable except as noted in HPI and below Physical Exam Vital Signs: Last Vital Signs Pulse 90 06/03/24 08:14 BP 128/84 06/03/24 08:14 Pulse Ox 98 06/03/24 08:14 Oxygen Delivery Method Room Air 06/03/24 08:14 Const General: cooperative, healthy appearing, comfortable and no acute distress Orientation/consciousness: patient oriented x3 Limitations: no limitations HEENT Head: Yes normal to inspection Ears: hearing grossly normal bilaterally, external ears normal and TM's normal bilaterally General nose exam: Normal external nose present, Normal nares present and No nasal discharge present Face and sinus: Yes normal facial exam and Yes sinuses nontender Mouth: Normal oral and palatal mucosa present and moist mucous membranes Throat: Yes tonsils normal, Yes uvula midline and Yes posterior oropharynx abnormal (Erythema) Eyes General: appearance normal, both eyes and all related structures Neck Neck: Yes normal visual inspection Resp Effort & Inspection: normal respiratory effort, able to speak in complete sentences, no respiratory distress, not tachypneic, no tripod positioning and no use of accessory muscles Skin General skin exam: no rashes or lesions noted Neuro General: patient oriented x3 Extrem General: Yes normal to inspection and Yes no clubbing, cyanosis or edema Assessment & Plan Assessment & Plan (1) URI (upper respiratory infection): Code(s): J06.9 - Acute upper respiratory infection, unspecified Qualifiers: URI type: unspecified URI Qualified Code(s): J06.9 - Acute upper respiratory infection, unspecified Plan: Vital signs stable, patient well-appearing, physical exam unremarkable. Sent flu COVID and RSV, rapid strep in office was negative however due to her symptoms, we will get a throat culture. Recommended she use Nasonex, hot tea with honey and other [id number] medications to treat her symptoms. Plan See above Orders: Orders Throat Culture Today J02.9 - Acute pharyngitis, unspecified SARS-CoV2/FLU/RSV Today R09.89 - Other specified symptoms and signs involving the circulatory and respiratory systems Coding Level of Care Code Est Pt Level 3 (09510) Diagnoses Upper respiratory tract infection, unspecified type J06.9 URI type: unspecified URI
== END 2024-06-03 08:57 | disposition home or self-care (01) ==
PROVIDERS: PCP Nurse Practitioner Family; Visit Provider Physician Assistant
DX: J06.9 Acute upper respiratory infection, unspecified (principal); Z13.9 Encounter for screening, unspecified

== ENCOUNTER 2024-06-10 08:34 | Outpatient (REF) | payer OTHER, SELFPAY ==
--- NOTE | 2024-06-10 08:36 | EMG_ITS ---
Left median and ulnar motor and sensory studies were performed. Left radial and median and lateral antecubital brachial sensory studies were performed and paraspinal muscles were tested with a needle. IMPRESSION: Mild left ulnar neuropathy across cubital tunnel. MD BIANKA Meléndez/STEPHANIE / [id number]
== END 2024-06-10 08:35 | disposition home or self-care (01) ==
LOC: HO.NEURO 08:34
PROVIDERS: PCP Nurse Practitioner Family; Visit Provider Nurse Practitioner Family
DX: R20.0 Anesthesia of skin (principal); V89.2XXA Person injured in unspecified motor-vehicle accident, traffic, initial encounter
CPT/HCPCS: 95886; 95910

== ENCOUNTER 2024-07-01 11:00 | Outpatient (RCR) | payer OTHER, SELFPAY ==
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
--- NOTE | 2024-07-15 10:06 | MHC.PT.DC ---
[facility] [place] [facility] [place] Office [place] Office [address] Romel Grey [address] [phone] F: [phone] F: [phone] F: [phone] F: [phone] Physical Therapy Discharge Report Diagnosis: cervical disc disorder Date of Surgery: n/a Date of Evaluation: 06/05/24 Date of Discharge: 07/15/24 Treatments to Date: 5 Cancellations to Date: 1 No Shows to Date: 0 Discharge Status: Patient Elected to Stop Recommend MD Follow-up Discharge Summary: Pt cancelled her final appointment. Discussed at last visit she was going to see her doctor and possibly stop PT as it has not been helping so far. Therefore she is d/c and recommend following up with her doctor. Electronically signed by: Lissette Garzon, PT, DPT, ATC Please sign and return to therapist. Thank you for your referral.
== END 2024-07-15 10:07 | disposition home or self-care (01) ==
LOC: HO.PTCHIC 11:00
PROVIDERS: PCP Nurse Practitioner Family; Visit Provider Nurse Practitioner Family
DX: R20.0 Anesthesia of skin (principal); M50.90 Cervical disc disorder, unspecified, unspecified cervical region
CPT/HCPCS: 97012; 97110; 97140; 97161

== ENCOUNTER 2024-12-25 08:17 | Outpatient (AMB) | payer OTHER, SELFPAY ==
[2024-12-25 08:20] VITALS: BP 122/80; PULSE 84; O2SAT 96; BMI 47.0
--- NOTE | 2024-12-25 08:20 | A.OFFPC_ITS ---
Vital Signs 12/25/24 08:20 Height 5 ft 7 in Weight 300 lb BMI 47.0 BP 122/80 Blood Pressure Location Lt brachial Position Sitting Pulse 84 Pulse Source Pulse Oximeter Pulse Oximetry (%) 96 Oxygen Delivery Method Room Air Intake Visit Reasons: PE Accompanied by: Self / Same As Patient Allergies gabapentin [GABAPENTIN] Allergy (Severe, Verified 12/25/24 08:37) Loss of vision, Vision changes erythromycin base [ERYTHROMYCIN BASE] Allergy (Unknown, Verified 12/25/24 08:37) Unknown Sulfa (Sulfonamide Antibiotics) [SULFA (SULFONAMIDE ANTIBIOTICS)] Allergy (Unkn own, Verified 12/25/24 08:37) Unknown Medication List - Last Reconciled 12/25/24 by PAULINA Araujo- fexofenadine (Lisa Allergy) 180 mg PO DAILY 90 days levothyroxine mcg PO Tobacco use date assessed: 12/25/24 Dental Screening Dental Screen Date: 12/25/24 Did you have a dental visit in the last 12 months?: No Did you have a dental problem in the last 6 months where you did not have access to dental care?: No Was dental information given to patient?: Yes HPI PE HPI Details History of Present Illness The patient is a 39-year-old female presenting for a routine physical examination. She has a well-established thyroid disorder managed by her steam generating powerplant mechanic, with no new symptoms reported. Adhering to her routine care, she denies any current chest discomfort, shortness of breath, abdominal pain, or significant gastrointestinal issues such as blood in the stool or changes in bowel habits. Regarding gynecological health, she undergoes regular Pap smears performed by her publishing agent. She was noted to be obese, which remains a point of concern for overall health management. This visit serves as a routine evaluation without any emergent symptoms or the introduction of new chronic conditions. med sent for allergies Health Maintenance - Regular thyroid function monitoring wi th an steam generating powerplant mechanic - Routine gynecological care with Pap sm ears Social History - No specific details regarding social d eterminants of health were provided. Review of Systems - Cardiovascular: Denies chest pain - Respiratory: Denies shortness of breat h - Gastrointestinal: Denies abdominal samantha n, blood in stool, constipation, diarrhea denies any si or hi Physical Exam General: Patient is morbid obesity Orientation: Patient oriented x3 Limitations: No limitations Head: Normal to inspection Ears: Hearing grossly normal bilaterally Nose: Normal external nose present Face and sinus: Normal facial exam Eyes: Appearance normal, both eyes and all related structures Neck: Normal visual inspection and Yes full ROM Respiratory: Normal respiratory effort and able to speak in complete sentences. Clear to auscultation bilaterally Cardiovascular: Regular rate and rhythm. Normal S1 and S2 GI: Normal to inspection. Soft to palpation and nontender Skin: No rashes or lesions noted Neuro: Patient oriented x3 Extremities: Normal to inspection Results Plan Considering the diagnosis of a thyroid disorder, the patient will continue follow-up with her steam generating powerplant mechanic. Given her obesity, addressing weight management through appropriate lifestyle and nutritional changes is crucial. No acute issues were recorded; hence ongoing thyroid management and routine gynecological evaluations for preventive care should be highlighted. Discussion Notes During the consultation, we discussed the continuation of endocrinological care for thyroid disorder management and weight management strategies due to obesity. The priority lies in preventive measures, focusing on sustaining routine Pap smear tests for consistent gynecological monitoring. The reinforcement of a healthy lifestyle that integrates balanced nutrition was advocated to address the weight-related concerns. This dialogue emphasized our approach to maintai roland the patient's overall health status effectively. Patient Instructions - Continue following up with your endocr inologist for thyroid management. - Regular Pap smears with your BLUEPRINTING MACHINE OPERATOR are i mportant; keep appointments. - Focus on a healthier lifestyle?balance your diet and maintain physical activity to manage weight. - Monitor any new symptoms and inform me immediately if they arise. [facility] Medical History Right thyroid nodule Surgical History History of section Family History Father HTN (hypertension) Diabetes mellitus Mother Mental health disorder Maternal Grandfather Diabetes mellitus Maternal Grandmother No problems noted. Paternal Grandmother Diabetes mellitus Asthma Breast cancer Paternal Grandfather Diabetes mellitus Paternal Aunt Breast cancer Brother Mental health disorder Sister Mental health disorder Son No problems noted. Maternal Aunt Mental health disorder Social History Housing: Apartment Patient Tobacco Use Status: Former Tobacco user e-Cigarette/Vaping Use: Currently Using service: No Current occupational status: employed Current occupation: [employer] Worker Current occupational exposures/hazards: Yes Cognitive needs: No Hearing needs: No Vision needs: Yes Questionnaire PHQ-9 Over the last 2 weeks, how often have you been bothered by any of the following problems? 1. Little interest or pleasure in doing things: not at all 2. Feeling down, depressed, or hopeless: not at all 3. Trouble falling or staying asleep, or sleeping too much: several days 4. Feeling tired or having little energy: several days 5. Poor appetite or overeating: several days 6. Feeling bad about yourself - or that you are a failure or have let yourself or your family down: not at all 7. Trouble concentrating on things, such as reading the newspaper or watching television: not at all 8. Moving or speaking so slowly that other people could have noticed. Or the opposite - being so fidgety or restless that you have been moving around a lot more than usual: not at all 9. Thoughts that you would be better off or of hurting yourself in some way: not at all Total score: 3 Depression Screening Interpretation: Negative Depression Screening Done: Yes 95920 - PHQ-9 Billing: Yes Source: Developed by Drs. Trey Tompkins, Fidelia Celis, Francesco Fuentes and colleagues, with an educational natalie from [employer]. Thrive Questionnaire Date Thrive assessed: 12/25/24 I am a: Patient What is your living situation today?: I have a steady place to live Within the past 12 months, did the food you bought not last and you didn't have the money to get more?: Never true Within the past 12 months, did you worry whether your food would run out before you got money to buy more?: Never true Do you have trouble paying for medicines?: No Do you have trouble getting transportation to medical appointments?: No Do you have trouble paying your heating and electricity bill?: No Do you have trouble taking care of your child, family member or friend?: No Do you have trouble with day-to-day activities such as bathing, preparing meals, shopping, managing finances, etc.?: No Are you currently unemployed and looking for a job?: No Are you interested in more education?: No Please select the resources that you would like help with: None Currently or been in a relationship where the following occur: I choose not to answer THRIVE Score: 0 AUDIT C Alcohol Use Questionnaire (AUDIT-C) 1. How often do you have a drink containing alcohol?: Monthly or less 2. How many drinks containing alcohol do you have on a typical day when you are drinking?: 3 or 4 3. How often do you have six or more drinks on one occasion?: Never Total Score: 2 Score Reviewed/Action Taken: Yes FOZIA-7 AMB Questionnaire FOZIA-7 Date FOZIA - 7 assessed: 12/25/24 Feeling nervous, anxious, or on edge: 0 = Not at all Not being able to stop or control worryin = Not at all Worrying too much about different things: 0 = Not at all Trouble relaxin = Several days Being so restless that it is hard to sit still: 0 = Not at all Becoming easily annoyed or irritable: 1 = Several days Feeling afraid as if something awful might happen: 1 = Several days Total FOZIA-7 score (0-4 normal; 5-9 mild; 10-14 moderate; 15-21 severe): 3 Source: Developed by Drs. Trey Tompkins, Fidelia Celis, rFancesco Fuentes and colleagues, with an educational natalie from [employer]. FOZIA-7 Assessment Billing FOZIA-7 Assessment Tool: FOZIA-7 Assessment 35643 Physical exam (Primary Care) Vital Signs: Last Vital Signs Pulse 84 12/25/24 08:20 BP 122/80 12/25/24 08:20 Pulse Ox 96 12/25/24 08:20 Oxygen Delivery Method Room Air 12/25/24 08:20 BMI result Body Mass Index 47.0 Tobacco/Smoking Status: Tobacco use Status Tobacco use date assessed 12/25/24 12/25/24 08:21 Patient Tobacco Use Status Former Tobacco user 12/25/24 08:21 e-Cigarette/Vaping Use Currently Using 12/25/24 08:21 PHQ-9: PHQ-9 Score PHQ-9: Total score 3 12/25/24 08:21 Depression Screening Interpretation: Negative Thrive Assessment: Date of Thrive Assessment Date Thrive assessed 12/25/24 12/25/24 08:21 Currently or been in a relationship where the following occur: I choose not to answer Coding Level of Care Code Est Pt Prev Care 18-39y(56854) Diagnoses Physical exam Z00.00 Additional Codes FOZIA-7 Assessment Billing - FOZIA-7 Assessment Tool: FOZIA-7 Assessment 24202 ([id number]) PHQ-9 - 50160 - PHQ-9 Billing: Yes ([id number]) Assessment & Plan Assessment & Plan (1) Physical exam: Code(s): Z00.00 - Encounter for general adult medical examination without abnormal findings Category: Medical Plan . Orders: Orders Complete Blood Count Auto Diff Today Z00.00 - Encounter for general adult medical examination without abnormal findings UA CC w/rflx Micro + Cult Today Z00.00 - Encounter for general adult medical examination without abnormal findings Lipid Panel Today Z00.00 - Encounter for general adult medical examination without abnormal findings Comprehensive [place]. Panel Fast Today Z00.00 - Encounter for general adult medical examination without abnormal findings TSH reflex Free T4 Today Z00.00 - Encounter for general adult medical examination without abnormal findings Medications: New fexofenadine (Lisa Allergy) 180 mg PO DAILY 90 days 90 tabs 0RF
--- OUTSIDE RECORDS SUMMARY | 2024-12-25 08:33 | XMS_ITS | Clinical Summary ---
Author Organization [address] Address [address] [place] [phone] Phone Care Team Providers Care Educational Therapist Name Role Phone Tomy Almodovar NP Primary Care Provider Allergies Active Allergy Reactions Criticality Noted Date Comments Apple Anaphylaxis,Swelling , Wheezing High 12/06/2011 cucumber Ascorbic Acid Anaphylaxis High 12/18/2008 Apples, plums,pears Gabapentin Vision Problem,Unknown Medium 02/20/2013 Vision problem Grass Pollen Anaphylaxis High 10/03/2022 Nut - Unspecified Anaphylaxis High 12/18/2008 walnuts [place] Itching 10/15/2024 Pear Itching 10/15/2024 Penicillins High 10/03/2022 [facility] Itching 10/15/2024 Sulfa (Sulfonamide Antibiotics) Burning Eyes High 12/18/2008 Dx'd as a child - uncertain reaction Tree Nuts Swelling 10/03/2022 Medications ibuprofen 200 mg capsule Take 600 mg by mouth. 8 Active levonorgestreL (MIRENA) 21 mcg/24hr (up to 8 yrs) 52 mg IUD 1 Device (1 each total) by intrauterine route. 3 028 Active levothyroxine (SYNTHROID, LEVOTHROID) 137 mcg tablet TAKE 1 TABLET (137 MCG TOTAL) BY MOUTH DAILY 90 tablet 1 5 Active levothyroxine (SYNTHROID, LEVOTHROID) 137 mcg tablet Take 1 tablet (137 mcg total) by mouth 1 (one) time each day. Take 7.5 tabs a week. 90 tablet 3 5 Active levothyroxine (SYNTHROID, LEVOTHROID) 137 mcg tablet Take 1 tablet (137 mcg total) by mouth 1 (one) time each day. 30 tablet 5 025 Discontin ued(Reord er) levothyroxine (SYNTHROID, LEVOTHROID) 137 mcg tablet Take 1 tablet (137 mcg total) by mouth 1 (one) time each day. 90 tablet 3 5 025 Discontin ued(Reord er) levothyroxine (SYNTHROID, LEVOTHROID) 137 mcg tablet Take 1 tablet (137 mcg total) by mouth 1 (one) time each day. Take 7.5 tabs a week. 5 025 Discontin ued(Reord er) Encounters Date Type Department Care Team Description 12/09/2024 7:15 PM EDT - 12/09/2024 11:59 PM EDT Hospital Encounter Radiology Department - [address] [phone] Thyroid nodule; Hypothyroidism, unspecified type Discharge Disposition: Home or Self Care 12/09/2024 8:45 AM EDT Office Visit Endocrinology - [address] [phone] Jacey Rubalcava PA Thyroid nodule (Primary Dx); Hypothyroidism, unspecified type 11/26/2024 10:15 AM EDT [facility] [address] [place] [id number] Blake Owen MD Mass of breast, unspecified laterality 10/24/2024 9:14 AM EDT - 10/24/2024 11:59 PM EDT Hospital Encounter Radiology Department - [address] [phone] Mass of breast, unspecified laterality Discharge Disposition: Home or Self Care 10/24/2024 9:14 AM EDT - 10/24/2024 11:59 PM EDT Hospital Encounter Radiology Department - [address] [phone] Mass of breast, unspecified laterality Discharge Disposition: Home or Self Care 10/15/2024 9:00 AM EST Office Visit Obstetrics and Gynecology [address] [phone] Promise De Leon, CNM Mass of breast, unspecified laterality (Primary Dx) from Last 3 Months Surgical History Surgery Date Site/Laterality Comments SECTION 2008 PROCEDURE: HISTORICAL DELIVERY; COMMENT: OP, failed progress in labor Medical History Medical History Date Comments Hypothyroidism DX:Hypothyroidis m Family History Medical History Relation Name Comments Thyroid disease Mother hypothyroid Breast cancer Neg Hx Ovarian cancer Neg Hx Uterine cancer Neg Hx Relation Name Status Comments Brother Alive Father Alive Mother Alive Sister Alive Social History Tobacco Use Types Packs/Day Years Used Date Smoking Tobacco: Former Cigarettes Q uit: 01/18/2009 Smokeless Tobacco: Never Tobacco Cessation:Counseling Given: Not Answered Alcohol Use Standard Drinks/Week Comments Yes 0 (1 standard drink = 0.6 oz pur e alcohol) Comments No Sex and Gender Information Value Date Recorded Sex Assigned at Not on file Legal Sex Female 1:48 PM EST Gender Identity Not on file Sexual Orientation Not on file Obstetrics History Para Term AB IAB SAB Ectopic Multiple Livin g Live Births 3 1 1 2 2 1 1 Date Outcome GA Total Labor Labor/2nd/3rd Weight Sex Type Anes PTL Glorai A1 A5 Name Clin SAB 8 SAB Decea sed 2008 Term 38w 2d 4054 g (143 oz) M CS-LT ranv Epidur al N Livin g 8 9 [facility] Delivery Location:[facility] Comments:OP, failed la bor stimulation after SROM Last Filed Vital Signs Vital Sign Reading Time Taken Comments Blood Pressure 104/83 12/09/2024 8:42 AM EDT Pulse 77 12/09/2024 8:42 AM EDT Temperature 36.2 ??C (97.2 ??F) 12/09/2024 8:42 AM ED T Respiratory Rate - - Oxygen Saturation - - Inhaled Oxygen Concentration - - Weight 135 kg (298 lb 3.2 oz) 12/09/2024 8:42 AM EDT Height 170.2 cm (5' 7 ) 12/09/2024 8:42 AM EDT Body Mass Index 46.7 12/09/2024 8:42 AM EDT Plan of Treatment Upcoming Encounters Date Type Department Care Team (Late st Contact Info) Description 03/11/2025 11:15 AM EDT Office Visit Obstetrics and Gynecology - [facility] [address] [place] [phone] Promise De Leon, CNM [address] [place] [address] Health Maintenance Due Date Last Done Comments Hepatitis B Vaccines (1 of 3 - 19+ 3-dose series) 2005 DTaP,Tdap,and Td Vaccines (2 - Td or Tdap) 01/16/2019 01/16/2009 Depression Screening 07/11/2022 HIV Screening 07/11/2022 Hepatitis C Screening 07/11/2022 Social Influencers of Health Screening 07/11/2022 COVID-19 Vaccine ( season) 2024 Influenza Vaccine (Season Ended) 2025 05/21/2017, 05/06/2013, 05/31/2012, Additional history exists Cervical Cancer Screening: Pap Smear 04/30/2026 04/30/2023 HIB Vaccines Aged Out No longer eligi ble based on patient's age to complete this topic HPV Vaccines Aged Out No longer eligi ble based on patient's age to complete this topic Hepatitis A Vaccines Aged Out No long er eligible based on patient's age to complete this topic IPV Vaccines Aged Out No longer eligi ble based on patient's age to complete this topic MMR Vaccines Aged Out No longer eligi ble based on patient's age to complete this topic Meningococcal ACWY Vaccine Aged Out N o longer eligible based on patient's age to complete this topic Meningococcal B Vaccine Aged Out No l onger eligible based on patient's age to complete this topic Pneumococcal Vaccine: Pediatrics (0 to 5 Years) and At-Risk Patients (6 to 64 Years) Aged Out No longer eligible based on patient's age to complete this topic RSV Immunization Patients Under 20 months Aged Out No longer eligible based on patient's age to complete this topic Varicella Vaccines Aged Out No longer eligible based on patient's age to complete this topic Procedures Procedure Name Priority Date/Time Associated Diagnosis Comments US HEAD NECK SOFT TISSUE Routine 025 7:47 PM EDT Thyroid nodule Hypothyroidism, unspecified type TRIIODOTHYRONINE FREE Routine 12/09/2024 9:21 AM EDT Thyroid nodule Hypothyroidism, unspecified type FREE THYROXINE WITH REFLEX TO FREE TRIIODOTHYRONINE Routine 12/09/2024 9:21 AM EDT Thyroid nodule Hypothyroidism, unspecified type THYROID STIMULATING HORMONE WITH REFLEX TO FREE T4 AND FREE T3 Routine 12/09/2024 9:21 AM EDT Thyroid nodule Hypothyroidism, unspecified type US BREAST LIMITED BILAT Routine 10/25/19 25 9:53 AM EDT Mass of breast, unspecified laterality MG MAMMO DIGITAL DIAGNOSTIC W OSCAR BILAT Routine 10/24/2024 9:35 AM EDT Mass of breast, unspecified laterality PAP SMEAR Routine 04/30/2023 from Last 3 Months or Most Recently Relevant to Health Maintenance Results * US Head Neck Soft Tissue (12/09/2024 7:47 PM EDT) Anatomical Region Laterality Modality Head and Neck Ultrasound 12/10/2024 10:2 2 AM EDT Narrative 12/10/2024 10:24 AM EDT Thyroid ultrasound. History rule out thyroid nodules. Thyroid gland is heterogeneous in echotexture and hypervascular on color Doppler examination. Right thyroid lobe measures 5.2 x 1.6 x 2.2 cm. Left thyroid lobe measures 3.5 x 1.3 x 1.2 cm. Isthmus measures 5 mm. No focal abnormalities were identified in the thyroid gland. CONCLUSIONS: Heterogeneous in echotexture hypervascular thyroid gland without evidence of focal nodules. -------- FINAL REPORT -------- Dictated By: Orquidea Mejia Dictated Date: 12/10/2024 10:22 ET Assigned Physician: Orquidea Mejia Reviewed and Electronically Signed By: Orquidea Mejia Signed Date: 12/10/2024 10:24 ET Workstation ID: [id number] Transcribed By: Self Edit Transcribed Date: 12/10/2024 10:22 ET Procedure Note Orquidea Mejia MD - 12/10/2024 Thyroid ultrasound. History rule out thyroid nodules. Thyroid gland is heterogeneous in echotexture and hypervascular on colorDoppler examination. Right thyroid lobe measures 5.2 x 1.6 x 2.2 cm. Leftthyroid lobe measures 3.5 x 1.3 x 1.2 cm. Isthmus measures 5 mm. No focalabnormalities were identified in the thyroid gland. CONCLUSIONS: Heterogeneous in echotexture hypervascular thyroid glandwithout evidence of focal nodules. -------- FINAL REPORT -------- Dictated By: Orquidea Mejia Dictated Date: 12/10/2024 10:22 ET Assigned Physician: Orquidea Mejia Reviewed and Electronically Signed By: Orquidea Mejia Signed Date: 12/10/2024 10:24 ET Workstation ID: [id number] Transcribed By: Self Edit Transcribed Date: 12/10/2024 10:22 ET us Jacey CURTIS IMG US PROCEDURES Final Res ult * (ABNORMAL) Thyroid stimulating hormone with reflex to free t4 and free t3 (12/09/2024 9:21 AM EDT) TSH 4.87(H) 0.40 - 4.00 mcIU/mL LAB CHEMISTRY METHOD 12/09/2024 1:30 PM EDT [facility] Blood Venous blood specimen / Unknown Venipuncture / Unknown 12/09/2024 9:21 AM EDT 12/09/2024 9:21 AM EDT us Jacey CURTIS LAB BLOOD ORDERABLES Final Result [facility] [address] [place] [address], [place] [phone] * Free thyroxine with reflex to free triiodothyronine (12/09/2024 9:21 AM EDT) Free T4 1.20 0.70 - 1.80 ng/dL LAB CHEMISTRY METHOD 12/09/2024 2:13 PM EDT [facility] Blood Venous blood specimen / Unknown Venipuncture / Unknown 12/09/2024 9:21 AM EDT 12/09/2024 9:21 AM EDT Jacey CURTIS LAB BLOOD ORDERABLES Final Result [facility] [address] [place] [address], [place] [phone] * Triiodothyronine free (12/09/2024 9:21 AM EDT) T3, Free 328 230 - 420 pcg/dL LAB CHEMISTRY METHOD 12/09/2024 2:49 PM EDT [facility] Blood Venous blood specimen / Unknown Venipuncture / Unknown 12/09/2024 9:21 AM EDT 12/09/2024 9:21 AM EDT Jacey CURTIS LAB BLOOD ORDERABLES Final Result Performing Organization Address City/[facility]/ZIP Co de Phone Number [facility] [address] [place] [address], [place] [phone] * US Breast Limited bilat (10/24/2024 9:53 AM EDT) Anatomical Region Laterality Modality Breast Bilateral Ultrasound 10/24/2024 9:37 AM EDT Impressions 10/24/2024 10:04 AM EDT RIGHT BREAST: Negative, no evidence of malignancy. ??In particular, no suspicious mammographic or sonographic findings to accounts for palpable concern. ??Clinical follow-up is recommended, independent of imaging findings. ??Otherwise, screening mammogram is recommended at the age of 4041 years old. LEFT BREAST: Negative, no evidence of malignancy. ??In particular, no suspicious mammographic or sonographic findings to accounts for palpable concern. ??Clinical follow-up is recommended, independent of imaging findings. ??Otherwise, screening mammogram is recommended at the age of [age] years old. Findings and recommendations were discussed with the patient at completion of the studies. ?? BREAST DENSITY: B - There are scattered areas of fibroglandular density. ?? BI-RADS CATEGORY: 1 - NEGATIVE RECOMMENDATION: Mammography: Clinical management of bilateral breasts is recommended. Ultrasound: Clinical management of bilateral breasts is recommended. Mammo Location: [facility], [address] [place] [address], [phone], . -------- FINAL REPORT -------- Dictated By: Ada Morel Dictated Date: 10/24/2024 09:37 ET Assigned Physician: Ada Morel Reviewed and Electronically Signed By: Ada Morel Signed Date: 10/24/2024 10:04 ET Workstation ID: [id number] Transcribed By: Self Edit Transcribed Date: 10/24/2024 09:53 ET Narrative 10/24/2024 10:04 AM EDT HISTORY: Office visit on October 15, 2024 describes bilateral breast lumps: -Right: 2 small mobile nontender lumps at 6-7 o'clock -Left: 1 larger at 6:00 STUDIES: 1. Bilateral diagnostic mammography with tomosynthesis and CAD 2. Targeted ultrasound of the right breast 3. Targeted ultrasound of the left breast TECHNIQUE: Bilateral digital diagnostic mammography is obtained and read in conjunction with computer-aided detection. ??Tomosynthesis as well as 2-D C view imaging were obtained. COMPARISON: None. ??This is a baseline study. RIGHT BREAST: No significant masses, suspicious calcifications or other abnormalities are seen. ??In particular, no suspicious mammographic findings adjacent to the triangular skin marker placed at approximately 6 o'clock position. Targeted ultrasound was performed at the location of the palpable concern as indicated by the patient. ??The survey was performed throughout the entire 6:00 and 7:00 axis. ??No suspicious sonographic findings seen. LEFT BREAST: No significant masses, suspicious calcifications or other abnormalities are seen. ??In particular, no suspicious mammographic findings adjacent to the triangular skin marker placed in the lower inner quadrant. Targeted ultrasound was performed at the location of the palpable concern as indicated by the patient. ??The survey was performed throughout the entire 6:00 axis. ??No suspicious sonographic findings seen. Procedure Note Ada Morel MD - 10/24/2024 HISTORY: Office visit on October 15, 2024 describes bilateral breast lumps: -Right: 2 small mobile nontender lumps at 6-7 o'clock -Left: 1 larger at 6:00 STUDIES: 1. Bilateral diagnostic mammography with tomosynthesis and CAD 2. Targeted ultrasound of the right breast 3. Targeted ultrasound of the left breast TECHNIQUE: Bilateral digital diagnostic mammography is obtained and readin conjunction with computer-aided detection. Tomosynthesis as well as2-D C view imaging were obtained. COMPARISON: None. This is a baseline study. RIGHT BREAST: No significant masses, suspicious calcifications or otherabnormalities are seen. In particular, no suspicious mammographicfindings adjacent to the triangular skin marker placed at approximately 6o'clock position. Targeted ultrasound was performed at the location of the palpable concernas indicated by the patient. The survey was performed throughout theentire 6:00 and 7:00 axis. No suspicious sonographic findings seen. LEFT BREAST: No significant masses, suspicious calcifications or otherabnormalities are seen. In particular, no suspicious mammographicfindings adjacent to the triangular skin marker placed in the lower innerquadrant. Targeted ultrasound was performed at the location of the palpable concernas indicated by the patient. The survey was performed throughout theentire 6:00 axis. No suspicious sonographic findings seen. IMPRESSION: RIGHT BREAST: Negative, no evidence of malignancy. In particular, nosuspicious mammographic or sonographic findings to accounts for palpableconcern. Clinical follow-up is recommended, independent of imagingfindings. Otherwise, screening mammogram is recommended at the age of 40years old. LEFT BREAST: Negative, no evidence of malignancy. In particular, nosuspicious mammographic or sonographic findings to accounts for palpableconcern. Clinical follow-up is recommended, independent of imagingfindings. Otherwise, screening mammogram is recommended at the age of 40years old. Findings and recommendations were discussed with the patient at completionof the studies. BREAST DENSITY: B - There are scattered areas of fibroglandular density. BI-RADS CATEGORY: 1 - NEGATIVE RECOMMENDATION: Mammography: Clinical management of bilateral breasts is recommended. Ultrasound: Clinical management of bilateral breasts is recommended. Mammo Location: [facility], [address] [place] [address], [phone], . -------- FINAL REPORT -------- Dictated By: Ada Morel Dictated Date: 10/24/2024 09:37 ET Assigned Physician: Ada Morel Reviewed and Electronically Signed By: dAa Morel Signed Date: 10/24/2024 10:04 ET Workstation ID: [id number] Transcribed By: Self Edit Transcribed Date: 10/24/2024 09:53 ET us Promise De Leon CNM IM US PROCEDURES Final Result * MG Mammo Digital Diagnostic w Oscar bilat (10/24/2024 9:35 AM EDT) Anatomical Region Laterality Modality Breast Bilateral Mammography 10/24/2024 9:37 AM EDT Impressions 10/24/2024 10:04 AM EDT RIGHT BREAST: Negative, no evidence of malignancy. ??In particular, no suspicious mammographic or sonographic findings to accounts for palpable concern. ??Clinical follow-up is recommended, independent of imaging findings. ??Otherwise, screening mammogram is recommended at the age of [age] years old. LEFT BREAST: Negative, no evidence of malignancy. ??In particular, no suspicious mammographic or sonographic findings to accounts for palpable concern. ??Clinical follow-up is recommended, independent of imaging findings. ??Otherwise, screening mammogram is recommended at the age of [age] years old. Findings and recommendations were discussed with the patient at completion of the studies. ?? BREAST DENSITY: B - There are scattered areas of fibroglandular density. ?? BI-RADS CATEGORY: 1 - NEGATIVE RECOMMENDATION: Mammography: Clinical management of bilateral breasts is recommended. Ultrasound: Clinical management of bilateral breasts is recommended. Mammo Location: [facility], [address] [place] [address], [phone], . -------- FINAL REPORT -------- Dictated By: Ada Morel Dictated Date: 10/24/2024 09:37 ET Assigned Physician: Ada Morel Reviewed and Electronically Signed By: Ada Morel Signed Date: 10/24/2024 10:04 ET Workstation ID: [id number] Transcribed By: Self Edit Transcribed Date: 10/24/2024 09:53 ET Narrative 10/24/2024 10:04 AM EDT HISTORY: Office visit on October 15, 2024 describes bilateral breast lumps: -Right: 2 small mobile nontender lumps at 6-7 o'clock -Left: 1 larger at 6:00 STUDIES: 1. Bilateral diagnostic mammography with tomosynthesis and CAD 2. Targeted ultrasound of the right breast 3. Targeted ultrasound of the left breast TECHNIQUE: Bilateral digital diagnostic mammography is obtained and read in conjunction with computer-aided detection. ??Tomosynthesis as well as 2-D C view imaging were obtained. COMPARISON: None. ??This is a baseline study. RIGHT BREAST: No significant masses, suspicious calcifications or other abnormalities are seen. ??In particular, no suspicious mammographic findings adjacent to the triangular skin marker placed at approximately 6 o'clock position. Targeted ultrasound was performed at the location of the palpable concern as indicated by the patient. ??The survey was performed throughout the entire 6:00 and 7:00 axis. ??No suspicious sonographic findings seen. LEFT BREAST: No significant masses, suspicious calcifications or other abnormalities are seen. ??In particular, no suspicious mammographic findings adjacent to the triangular skin marker placed in the lower inner quadrant. Targeted ultrasound was performed at the location of the palpable concern as indicated by the patient. ??The survey was performed throughout the entire 6:00 axis. ??No suspicious sonographic findings seen. Procedure Note Ada Morel MD - 10/24/2024 HISTORY: Office visit on October 15, 2024 describes bilateral breast lumps: -Right: 2 small mobile nontender lumps at 6-7 o'clock -Left: 1 larger at 6:00 STUDIES: 1. Bilateral diagnostic mammography with tomosynthesis and CAD 2. Targeted ultrasound of the right breast 3. Targeted ultrasound of the left breast TECHNIQUE: Bilateral digital diagnostic mammography is obtained and readin conjunction with computer-aided detection. Tomosynthesis as well as2-D C view imaging were obtained. COMPARISON: None. This is a baseline study. RIGHT BREAST: No significant masses, suspicious calcifications or otherabnormalities are seen. In particular, no suspicious mammographicfindings adjacent to the triangular skin marker placed at approximately 6o'clock position. Targeted ultrasound was performed at the location of the palpable concernas indicated by the patient. The survey was performed throughout theentire 6:00 and 7:00 axis. No suspicious sonographic findings seen. LEFT BREAST: No significant masses, suspicious calcifications or otherabnormalities are seen. In particular, no suspicious mammographicfindings adjacent to the triangular skin marker placed in the lower innerquadrant. Targeted ultrasound was performed at the location of the palpable concernas indicated by the patient. The survey was performed throughout theentire 6:00 axis. No suspicious sonographic findings seen. IMPRESSION: RIGHT BREAST: Negative, no evidence of malignancy. In particular, nosuspicious mammographic or sonographic findings to accounts for palpableconcern. Clinical follow-up is recommended, independent of imagingfindings. Otherwise, screening mammogram is recommended at the age of 40years old. LEFT BREAST: Negative, no evidence of malignancy. In particular, nosuspicious mammographic or sonographic findings to accounts for palpableconcern. Clinical follow-up is recommended, independent of imagingfindings. Otherwise, screening mammogram is recommended at the age of 40years old. Findings and recommendations were discussed with the patient at completionof the studies. BREAST DENSITY: B - There are scattered areas of fibroglandular density. BI-RADS CATEGORY: 1 - NEGATIVE RECOMMENDATION: Mammography: Clinical management of bilateral breasts is recommended. Ultrasound: Clinical management of bilateral breasts is recommended. Mammo Location: [facility], [address] [place] [address], [phone], . -------- FINAL REPORT -------- Dictated By: Ada Morel Dictated Date: 10/24/2024 09:37 ET Assigned Physician: Ada Morel Reviewed and Electronically Signed By: Ada Morel Signed Date: 10/24/2024 10:04 ET Workstation ID: [id number] Transcribed By: Self Edit Transcribed Date: 10/24/2024 09:53 ET Promise De Leon CNM IMG BI PROCEDURES Final Result * Pap smear (04/30/2023) 04/30/2023 Narrative HISTORICAL TESTING LAB RESULTING AGENCY - 05/14/2023 6:40 AM EDT [id number] THINPREP PAP, IMAGED: NEGATIVE FOR SQUAMOUS INTRAEPITHELIAL LESION AND MALIGNANCY . RICHARD DOBSON(ASCP) (CASE ELECTRONICALLY SIGNED 05 12 2023) RESULT OF APTIMA HIGH RISK HPV ASSAY: HIGH RISK HPV: ??NEGATIVE (SEROTYPES 16,18,31,33,35,39,45,51,52,56,58,59,66,68) COMPLETED ON 2023-05-03 ADEQUACY: SATISFACTORY ENDOCERVICAL/TRANSFORMATION ZONE COMPONENT PRESENT. SOURCE: THINPREP PAP HPV ANY DX: ??REFLEX 16 AND 18, CERVICAL, IMAGED CLINICAL INFORMATION: HPV ANY DIAGNOSIS. PAP HX NEGATIVE, [Z01.419] us Promise De Leon CNM LAB CYTOLOGY ORDERABLES Final Result HISTORICAL TESTING LAB RESULTING AGENCY from Last 3 Months or Most Recently Relevant to Health Maintenance Insurance [facility] Care Teams Educational Therapist Relationship Specialty Start Date End Date [facility] Almod[facility] [place] [facility] - [facility] Family [facility] 10/14/24
== END 2024-12-25 08:53 | disposition home or self-care (01) ==
LOC: HO.HMCC 08:18
PROVIDERS: PCP Nurse Practitioner Family; Visit Provider Nurse Practitioner Family
DX: Z00.00 Encounter for general adult medical examination without abnormal findings (principal)

== ENCOUNTER → 2024-12-25 08:17 | Outpatient (BNVA) | payer OTHER, SELFPAY | PROVIDERS: PCP Nurse Practitioner Family; Visit Provider Nurse Practitioner Family | DX: Z00.00 Encounter for general adult medical examination without abnormal findings (principal); R07.9 Chest pain, unspecified; R06.02 Shortness of breath; R10.9 Unspecified abdominal pain | CPT/HCPCS: 96127; 99395 ==

== ENCOUNTER 2025-01-26 08:19 | Outpatient (REF) | payer OTHER, SELFPAY ==
--- OUTSIDE RECORDS SUMMARY | 2025-01-26 08:38 | XMS_ITS | Clinical Summary ---
Author Organization [address] Address [address] [place] [phone] Phone Care Team Providers Care Sports Official Name Role Phone Tomy Almodovar NP Primary Care Provider Allergies Active Allergy Reactions Criticality Noted Date Comments Apple Anaphylaxis,Swelling , Wheezing High 12/06/2011 cucumber Ascorbic Acid Anaphylaxis High 12/18/2008 Apples, plums,pears Gabapentin Vision Problem,Unknown Medium 02/20/2013 Vision problem Grass Pollen Anaphylaxis High 10/03/2022 Nut - Unspecified Anaphylaxis High 12/18/2008 walnuts [place] Itching 10/15/2024 Pear Itching 10/15/2024 Penicillins High 10/03/2022 Baltic Itching 10/15/2024 Sulfa (Sulfonamide Antibiotics) Burning Eyes High 12/18/2008 Dx'd as a child - uncertain reaction Tree Nuts Swelling 10/03/2022 Medications ibuprofen 200 mg capsule Take 600 mg by mouth. 8 Active levonorgestreL (MIRENA) 21 mcg/24hr (up to 8 yrs) 52 mg IUD 1 Device (1 each total) by intrauterine route. 3 09/30/19 28 Active levothyroxine (SYNTHROID, LEVOTHROID) 137 mcg tablet TAKE 1 TABLET (137 MCG TOTAL) BY MOUTH DAILY 90 tablet 1 5 Active levothyroxine (SYNTHROID, LEVOTHROID) 137 mcg tablet Take 1 tablet (137 mcg total) by mouth 1 (one) time each day. Take 7.5 tabs a week. 90 tablet 3 Active Encounters Date Type Department Care Team Description 12/09/2024 7:15 PM EDT - 12/09/2024 11:59 PM EDT Hospital Encounter Radiology Department - [address] [phone] Thyroid nodule; Hypothyroidism, unspecified type Discharge Disposition: Home or Self Care 12/09/2024 8:45 AM EDT Office Visit Endocrinology - [address] [phone] Jacey Rubalcava PA Thyroid nodule (Primary Dx); Hypothyroidism, unspecified type 11/26/2024 10:15 AM EDT Consult [facility] - [address] [place] [phone] Blake Owen MD Mass of breast, unspecified laterality from Last 3 Months Surgical History Surgery [...] Labor Labor/2nd/3rd Weight Sex Type Anes PTL Gloria A1 A5 Name Clin SAB 8 SAB Decea sed 2008 Term 38w 2d 4054 g (143 oz) M CS-LT ranv Epidur al N Livin g 8 9 Eugenio MacMi llan Delivery Location:[facility] Comments:OP, failed la bor stimulation after SROM [...] EDT Office Visit Obstetrics and Gynecology - [place] [address] [place] [phone] Promise eD Leon, [facility] [address] [place] [address] Health Maintenance Due Date Last Done Comments [...] AM EDT Thyroid nodule Hypothyroidism, unspecified type PAP SMEAR Routine 04/30/2023 from Last 3 [...] Signed Date: 12/10/2024 10:24 ET Workstation ID: [id number] Transcribed By: Self Edit Transcribed Date: 12/10/2024 [...] Signed Date: 12/10/2024 10:24 ET Workstation ID: [id number] Transcribed By: Self Edit Transcribed Date: 12/10/2024 10:22 ET us Jacey CURTIS IMG US PROCEDURES Final Res ult * (ABNORMAL) Thyroid stimulating hormone with reflex to free t4 and free t3 (12/09/2024 9:21 AM EDT) TSH 4.87(H) 0.40 - 4.00 mcIU/mL LAB CHEMISTRY METHOD 12/09/2024 1:30 PM EDT [facility] Blood Venous blood specimen / Unknown Venipuncture / Unknown 12/09/2024 9:21 AM EDT 12/09/2024 9:21 AM EDT us Jacey CURTIS LAB BLOOD ORDERABLES Final Result Performing Organization Address [facility]/ZIP Co de Phone Number [facility] [address] [place] [address], [place] [phone] * Free thyroxine with reflex to free triiodothyronine (12/09/2024 9:21 AM EDT) Free T4 1.20 0.70 - 1.80 ng/dL LAB CHEMISTRY METHOD 12/09/2024 2:13 PM EDT [facility] Blood Venous blood specimen / Unknown Venipuncture / Unknown 12/09/2024 9:21 AM EDT 12/09/2024 9:21 AM EDT Jacey CURTIS LAB BLOOD ORDERABLES Final Result Performing Organization Address [facility] Co de Phone Number [facility] [address] [place] [address], [place] [phone] * Triiodothyronine free (12/09/2024 9:21 AM EDT) T3, Free 328 230 - 420 pcg/dL LAB CHEMISTRY METHOD 12/09/2024 2:49 PM EDT [facility] Blood Venous blood specimen / Unknown Venipuncture / Unknown 12/09/2024 9:21 AM EDT 12/09/2024 9:21 AM EDT Jacey CURTIS LAB BLOOD ORDERABLES Final Result Performing Organization Address [facility]/ZIP Co de Phone Number [facility] [address] [place] [address], [place] [phone] * Pap smear (04/30/2023) 04/30/2023 Narrative HISTORICAL TESTING LAB RESULTING AGENCY - 05/14/2023 6:40 AM EDT [id number] THINPREP PAP, IMAGED: NEGATIVE FOR SQUAMOUS INTRAEPITHELIAL LESION AND MALIGNANCY . RICHARD DOBSON(ASCP) (CASE ELECTRONICALLY SIGNED 05 12 2023) RESULT OF APTIMA HIGH RISK HPV ASSAY: HIGH RISK HPV: ??NEGATIVE (SEROTYPES 16,18,31,33,35,39,45,51,52,56,58,59,66,68) COMPLETED ON 2023-05-03 ADEQUACY: SATISFACTORY ENDOCERVICAL/TRANSFORMATION ZONE COMPONENT PRESENT. SOURCE: THINPREP PAP HPV ANY DX: ??REFLEX 16 AND 18, CERVICAL, IMAGED CLINICAL INFORMATION: HPV ANY DIAGNOSIS. PAP HX NEGATIVE, [Z01.419] Promise HEALY LAB CYTOLOGY ORDERABLES Final Result HISTORICAL TESTING LAB RESULTING AGENCY from Last 3 Months or Most Recently Relevant to Health Maintenance Insurance [facility] Care Teams Sports Official Relationship Specialty Start Date End Date Tomy Almodovar NP [address] [place], [place] PCP - General Family Medicine 10/14/24
[2025-01-26 10:08] LABS: Appearance Urine Clear; Color Urine Yellow; Glucose Urine UA Negative (Negative); Leukocyte Esterase Urine Negative (Negative); Nitrite Urine Negative (Negative); PH 5.5 (5.0-9.0); Specific Gravity - Urine 1.015 (1.005-1.025); Urine Blood Negative (Negative); Urine Ketones Negative (Negative); Urine Protein Negative (Neg-Trace)
[2025-01-26 10:24] LABS: MANUAL DIFF FLAG NO
[2025-01-26 10:32] LABS: Basophils Percent Auto 0.5 % (0-2); Eosinophils Absolute Auto 0.1 X10*3/uL (0.0-0.4); Eosinophils Percent Auto 2.1 % (0-4); Hematocrit 36.5 % (37.0-47.0); Imm Gran Abs Auto 0.02 X10*3/uL (0.00-0.03); Imm Gran Pct Auto 0.3 % (0.0-0.4); Lymphocytes Absolute Auto 1.9 X10*3/uL (1.2-4.9); Lymphocytes Percent Auto 30.8 % (20-40); Mean Corpuscular HGB Conc 32.9 g/dl (31.0-35.0); Mean Corpuscular Hemoglobin 28.6 pg (27.0-33.0); Mean Corpuscular Volume 86.9 fL (80.0-98.0); Mean Platelet Volume 9.3 fL (9.4-12.3); Monocytes Absolute Auto 0.5 X10*3/uL (0.1-1.2); Monocytes Percent Auto 7.3 % (2-11); Neutrophils Absolute Auto 3.7 x10*3/uL (2.0-8.3); Platelet Count 414 X10*3/uL (160-400); Red Cell Distribution Width 13.2 % (11.0-16.0); White Blood Count 6.3 X10*3/uL (4.8-10.8)
[2025-01-26 10:54] LABS: Alanine Aminotransferase 29 U/L (0-31); Albumin Level 3.9 g/dL (3.5-5.0); Alkaline Phosphatase 62 U/L (39-117); Anion Gap 8 (12-20); Aspartate Amino Transferase 27 U/L (5-31); Bilirubin Total 0.5 mg/dL (0.0-1.0); Blood Urea Nitrogen 13 mg/dL (9-16); Calcium 8.9 mg/dL (8.4-10.2); Carbon Dioxide 28 mmol/L (22-29); Chloride 106 mmol/L (96-108); Cholesterol 190 mg/dL (<200); Estimated Glomerular Filt Rate > 60; Glucose Fasting 106 mg/dL (60-99); HDL Cholesterol 44 mg/dL (>40); LDL Cholesterol Calculated 119 mg/dL (<100); Potassium 3.9 mmol/L (3.3-5.1); Sodium 138 mmol/L (135-145); Triglycerides 138 mg/dL (<150)
[2025-01-26 11:11] LABS: TSH reflex Free T4 1.28 uIU/mL (0.32-4.0)
== END 2025-01-26 08:20 | disposition home or self-care (01) ==
LOC: HO.HMGCLDS 08:19
PROVIDERS: PCP Nurse Practitioner Family; Visit Provider Nurse Practitioner Family
DX: Z00.00 Encounter for general adult medical examination without abnormal findings (principal)
CPT/HCPCS: 36415; 80053; 80061; 81003; 84443; 85025

== ENCOUNTER 2025-02-11 14:54 | Outpatient (AMB) | payer OTHER, SELFPAY ==
[2025-02-11 15:06] VITALS: BP 106/80; PULSE 89; TEMP 36.8; O2SAT 97; BMI 45.6
--- NOTE | 2025-02-11 15:06 | AM.OFFWIN_ITS ---
Intake Vital Signs 02/11/25 15:06 Height 5 ft 7 in Weight 291 lb BMI 45.6 BP 106/80 Blood Pressure Location Lt brachial Position Sitting Pulse 89 Pulse Source Pulse Oximeter Temp 98.3 F Temp Source Oral Pulse Oximetry (%) 97 Oxygen Delivery Method Room Air Intake Visit Reasons: EP-?rt ear infection/dizziness/nauseas Intake Note: presents with dizziness, right ear pain, sinus congestion, sinus pressure, nauseous Patient Tobacco Use Status: Former Tobacco user Allergies gabapentin (GABAPENTIN) Allergy (Severe, Verified 02/11/25 15:10) Loss of vision, Vision changes erythromycin base (ERYTHROMYCIN BASE) Allergy (Unknown, Verified 02/11/25 15:10) Unknown Sulfa (Sulfonamide Antibiotics) (SULFA (SULFONAMIDE ANTIBIOTICS)) Allergy (Unknown, Verified 02/11/25 15:10) Unknown Do you need a note to return to daycare/school/sports/work: Yes Return to daycare/school/sports/work/other note: work HPI HPI Comments History of Present Illness Details History - The patient is a 39-year-old female pr esenting with dizziness and nausea. - Reports a scab-like sensation in the r ight ear, ignored initially, with dizziness and nausea worsening upon movement. - Suspects inner ear or sinus infection, with slight relief from allergy medication. - Recent swimming activity with water ex posure in the ear, considering swimmer's ear. - Denies fever, cough, sore throat, or e arwax buildup, but notes dull headache and postnasal drip. - Takes allergy medication daily and has taken thyroid medication today. Physical Exam General: Cooperative, healthy appearing, comfortable and no acute distress Orientation/consciousness: Patient oriented x3 Limitations: No limitations Head: Normal to inspection Ears: Hearing grossly normal bilaterally, external ears normal, right EAC with erythema, slight edema, no infection, TM's normal bilat Nose: Normal external nose present, Normal nares present and No nasal discharge present Face and sinus: Normal facial exam and Yes sinuses with pressure upon palpation Mouth: Normal oral and palatal mucosa present and moist mucous membranes Throat: Yes tonsils normal, Yes uvula midline. Posterior oropharynx erythema, no exudates Eyes: Appearance normal, both eyes and all related structures Neck: Normal visual inspection, full ROM Respiratory: Normal respiratory effort, able to speak in complete sentences, no cough, no respiratory distress, not tachypneic, no tripod positioning and no use of accessory muscles Skin: No rashes or lesions noted Neuro: Patient oriented x3 Extremities: Normal to inspection and Yes no clubbing, cyanosis or edema PFSH Medical History Right thyroid nodule Surgical History History of section Family History Father HTN (hypertension) Diabetes mellitus Mother Mental health disorder Maternal Grandfather Diabetes mellitus Maternal Grandmother No problems noted. Paternal Grandmother Diabetes mellitus Asthma Breast cancer Paternal Grandfather Diabetes mellitus Paternal Aunt Breast cancer Brother Mental health disorder Sister Mental health disorder Son No problems noted. Maternal Aunt Mental health disorder Social History Housing: Apartment Patient Tobacco Use Status: Former Tobacco user e-Cigarette/Vaping Use: Currently Using service: No Current occupational status: employed Current occupation: Director Business Development Current occupational exposures/hazards: Yes Cognitive needs: No Hearing needs: No Vision needs: Yes Review of Systems Const All systems reviewed & are unremarkable except as noted in HPI and below Physical Exam Vital Signs: Last Vital Signs Temp 98.3 F 02/11/25 15:06 Pulse 89 02/11/25 15:06 BP 106/80 02/11/25 15:06 Pulse Ox 97 02/11/25 15:06 Oxygen Delivery Method Room Air 02/11/25 15:06 BMI result Body Mass Index 45.6 Assessment & Plan Assessment & Plan (1) Maxillary sinusitis: Code(s): J32.0 - Chronic maxillary sinusitis Qualifiers: Chronicity: acute Recurrence: non-recurrent Qualified Code(s): J01.00 - Acute maxillary sinusitis, unspecified Plan: - VSS, pt well appearing and PE remarkable for erythema in right EAC. - Prescribe steroid ear drops to alleviate outer ear discomfort and inflammation. - 5 Day burst of oral prednisone to reduce overall inflammation in sinus's. - Recommend Benadryl at night to dry up any fluid and alleviate dizziness. - Advise on the Robinson maneuver for potential repositioning of ear stones if dizziness persists. Patient was informed and verbally consented to the use of an ambient scribe for clinic note documentation during this visit Medications: New prednisone 20 mg PO QAM 5 tabs 0RF hydrocortisone-acetic acid 1-2 % 4 drps otic (ear) right TID 10 mL 0RF Coding Level of Care Code Est Pt Level 3 (83004) Diagnoses Acute non-recurrent maxillary sinusitis J01.00 Chronicity: acute Recurrence: non-recurrent
--- OUTSIDE RECORDS SUMMARY | 2025-02-11 15:16 | XMS_ITS | Clinical Summary ---
Author Organization [address] Address [address] [place] [phone] Phone Care Team Providers Care Admissions Rn Name Role Phone Tomy Almodovar NP Primary Care Provider Allergies Active Allergy Reactions Criticality Noted Date Comments Apple Anaphylaxis,Swelling , Wheezing High 12/06/2011 cucumber Ascorbic Acid Anaphylaxis High 12/18/2008 Apples, plums,pears Gabapentin Vision Problem,Unknown Medium 02/20/2013 Vision problem Grass Pollen Anaphylaxis High 10/03/2022 Nut - Unspecified Anaphylaxis High 12/18/2008 walnuts [place] Itching 10/15/2024 Pear Itching 10/15/2024 Penicillins High 10/03/2022 [place] Itching 10/15/2024 Sulfa (Sulfonamide Antibiotics) Burning Eyes [...] PM EDT Hospital Encounter Radiology Department - [address] [phone] Thyroid nodule; Hypothyroidism, unspecified type Discharge Disposition: Home or Self Care 12/09/2024 8:45 AM EDT Office Visit Endocrinology - [address] [phone] Jacey Rubalcava PA Thyroid nodule (Primary Dx); Hypothyroidism, unspecified type 11/26/2024 10:15 AM EDT Consult [facility] - [address] [place] [phone] Blake Owen MD Mass of breast, unspecified [...] g 8 9 Eugenio MacMi llan Delivery Location:[facility] Comments:OP, failed la bor stimulation after SROM Last Filed Vital Signs Vital Sign Reading Time Taken Comments Blood Pressure 104/83 12/09/2024 8:42 AM EDT Pulse 77 12/09/2024 8:42 AM EDT Temperature 36.2 C (97.2 F) 12/09/2024 8:42 AM EDT Respiratory Rate - - Oxygen Saturation - [...] EDT Office Visit Obstetrics and Gynecology - [place] [address] [place] [phone] Promise De Leon, [facility] [address] [place] [address] Health Maintenance Due Date Last Done Comments [...] Signed Date: 12/10/2024 10:24 ET Workstation ID: [id number] Transcribed By: Self Edit Transcribed Date: 12/10/2024 [...] Signed Date: 12/10/2024 10:24 ET Workstation ID: [id number] Transcribed By: Self Edit Transcribed Date: 12/10/2024 10:22 ET us Jacey CURTIS IMG US PROCEDURES Final Res ult * (ABNORMAL) Thyroid stimulating hormone with reflex to free t4 and free t3 (12/09/2024 9:21 AM EDT) TSH 4.87(H) 0.40 - 4.00 mcIU/mL LAB CHEMISTRY METHOD 12/09/2024 1:30 PM EDT [facility] Blood Venous blood specimen / Unknown Venipuncture / Unknown 12/09/2024 9:21 AM EDT 12/09/2024 9:21 AM EDT us Jacey CURTIS LAB BLOOD ORDERABLES Final Result Performing Organization Address [facility]/ZIP Co de Phone Number [facility] [address] [place] [address], * Free thyroxine with reflex to free triiodothyronine (12/09/2024 9:21 AM EDT) Free T4 1.20 0.70 - 1.80 ng/dL LAB CHEMISTRY METHOD 12/09/2024 2:13 PM EDT [facility] Blood Venous blood specimen / Unknown Venipuncture / Unknown 12/09/2024 9:21 AM EDT 12/09/2024 9:21 AM EDT Jacey CURTIS LAB BLOOD ORDERABLES Final Result Performing Organization Address [facility] Co de Phone Number [facility] [address] [place] [address], [place] [phone] * Triiodothyronine free (12/09/2024 9:21 AM EDT) T3, Free 328 230 - 420 pcg/dL LAB CHEMISTRY METHOD 12/09/2024 2:49 PM EDT [facility] Blood Venous blood specimen / Unknown Venipuncture / Unknown 12/09/2024 9:21 AM EDT 12/09/2024 9:21 AM EDT Jacey CURTIS LAB BLOOD ORDERABLES Final Result Performing Organization Address [facility]/ZIP Co de Phone Number [facility] [address] [place] [address], [place] [phone] * Pap smear (04/30/2023) 04/30/2023 Narrative HISTORICAL TESTING LAB RESULTING AGENCY - 05/14/2023 6:40 AM EDT [id number] THINPREP PAP, IMAGED: NEGATIVE FOR SQUAMOUS INTRAEPITHELIAL LESION AND MALIGNANCY . RICHARD DOBSON(ASCP) (CASE ELECTRONICALLY SIGNED 05 12 2023) RESULT OF APTIMA HIGH RISK HPV ASSAY: HIGH RISK HPV: NEGATIVE (SEROTYPES 16,18,31,33,35,39,45,51,52,56,58,59,66,68) COMPLETED ON 2023-05-03 ADEQUACY: SATISFACTORY ENDOCERVICAL/TRANSFORMATION ZONE COMPONENT PRESENT. SOURCE: THINPREP PAP HPV ANY DX: REFLEX 16 AND 18, CERVICAL, IMAGED CLINICAL INFORMATION: HPV ANY DIAGNOSIS. PAP HX NEGATIVE, [Z01.419] [facility] LAB CYTOLOGY ORDERABLES Final Result HISTORICAL TESTING LAB RESULTING AGENCY from Last 3 Months or Most Recently Relevant to Health Maintenance Insurance [facility] Care Teams Admissions Rn Relationship Specialty Start Date End Date Tomy Almodovar NP [address] [place], [place] PCP - General Family Medicine 10/14/24
== END 2025-02-11 15:29 | disposition home or self-care (01) ==
PROVIDERS: PCP Nurse Practitioner Family; Visit Provider Physician Assistant
DX: J01.00 Acute maxillary sinusitis, unspecified (principal)

== ENCOUNTER → 2025-02-11 14:54 | Outpatient (BNVA) | payer OTHER, SELFPAY | PROVIDERS: PCP Nurse Practitioner Family; Visit Provider Physician Assistant | DX: J01.00 Acute maxillary sinusitis, unspecified (principal) | CPT/HCPCS: 99212 ==

== ENCOUNTER 2025-05-28 09:01 | Outpatient (REF) | payer OTHER, SELFPAY ==
[2025-05-28 15:30] LABS: Chlamydia pneumoniae PCR Not Detected (Not Detect.); Coronavirus 229E PCR Not Detected (Not Detect.); Coronavirus HKU1 PCR Not Detected (Not Detect.); Coronavirus NL63 PCR Not Detected (Not Detect.); Coronavirus OC43 PCR Not Detected (Not Detect.); RSV PCR Not Detected (Not Detect.); Rhino/Enterovirus PCR Not Detected (Not Detect.)
[2025-05-28 16:05] LABS: Influenza A H1 PCR Not Detected (Not Detect.); Influenza A H1-2009 PCR Not Detected (Not Detect.); Influenza A H3 PCR Not Detected (Not Detect.); SARS-CoV-2 PCR Not Detected (Not Detect.)
== END 2025-05-28 09:02 | disposition home or self-care (01) ==
LOC: HO.LNP 09:01
PROVIDERS: PCP Nurse Practitioner Family; Visit Provider Physician Assistant Medical
DX: R09.89 Other specified symptoms and signs involving the circulatory and respiratory systems (principal); R51.9 Headache, unspecified; R09.82 Postnasal drip; J02.9 Acute pharyngitis, unspecified; Z87.891 Personal history of nicotine dependence
CPT/HCPCS: 87633; 99212

== ENCOUNTER 2025-05-28 09:01 | Outpatient (AMB) | payer OTHER, SELFPAY ==
[2025-05-28 09:09] VITALS: BP 122/84; PULSE 80; TEMP 36.8; O2SAT 95; BMI 45.1
--- NOTE | 2025-05-28 09:09 | MHC.OFFWIV ---
Intake Vital Signs 05/28/25 09:09 Height 5 ft 7 in Weight 288 lb BMI 45.1 BP 122/84 Blood Pressure Location Lt brachial Position Sitting Pulse 80 Pulse Source Pulse Oximeter Temp 98.2 F Temp Source Oral Pulse Oximetry (%) 95 Oxygen Delivery Method Room Air Intake Visit Reasons: EP Congestion, cough [phone] Intake Note: pt presents with runny nose, chest congestion with productive cough x1 wk, is taking mucinex rapid clear Patient Tobacco Use Status: Former Tobacco user Allergies gabapentin (GABAPENTIN) Allergy (Severe, Verified 05/28/25 09:11) Loss of vision, Vision changes erythromycin base (ERYTHROMYCIN BASE) Allergy (Unknown, Verified 05/28/25 09:11) Unknown Sulfa (Sulfonamide Antibiotics) (SULFA (SULFONAMIDE ANTIBIOTICS)) Allergy (Unknown, Verified 05/28/25 09:11) Unknown Medication List - Last Reconciled 05/28/25 by Laine Rodriguez PA-C amoxicillin-pot clavulanate 875-125 mg 1 tab PO Q12H fexofenadine (Lisa Allergy) 180 mg PO DAILY 90 days hydrocortisone-acetic acid 1-2 % 4 drps otic (ear) right TID levothyroxine 1 tablet 6 days per week, 1.5 tabs one day per week prednisone 40 mg (2 x 20 mg) PO DAILY 5 days Do you need a note to return to daycare/school/sports/work: No HPI HPI Comments History of Present Illness Details History - The patient is a 40-year-old female presenting with congestion, sore throat, and post nasal drip. - Symptoms began approximately one week ago, with postnasal drip and sinus headache progressing to chest involvement. - Mucinex Rapid Clear provided some relief, but breathing difficulties persist upon waking. - She states that she gets this every year and usually gets prednisone and antibiotics. 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 - She denies fever, chills, CP, SOB, abd pain, n/v/d. - She does vape. - Her parents just recently returned from a trip to [place] and have been asymptomatic. Physical Exam General: Cooperative, healthy appearing, comfortable and no acute distress Orientation/consciousness: Patient oriented x3 Limitations: No limitations Head: Normal to inspection, reports dull headache and sinus pressure Ears: Hearing grossly normal bilaterally, external ears normal and TM's normal bilaterally, no pain in the ear Nose: Normal external nose present, normal nares present, and no nasal discharge present. Face and sinus: Sinuses nontender to palpation, reports postnasal drip Mouth: Normal oral and palatal mucosa present and moist mucous membranes noted. Throat: Tonsils normal. Uvula is midline. Posterior oropharynx with erythema and no exudates. Eyes: Appearance normal, both eyes and all related structures Neck: Normal visual inspection, full ROM. No lymphadenopathy noted. Respiratory: Clear to auscultation bilaterally. Wheezing noted. Normal respiratory effort, able to speak in complete sentences. No respiratory distress, not tachypneic, no tripod positioning and no use of accessory muscles. Cardiovascular: Regular rate and rhythm. Normal S1 and S2 Skin: No rashes or lesions noted Patient was informed and verbally consented to the use of an ambient scribe for clinic note documentation during this visit [facility] Medical History Right thyroid nodule Surgical History History of section Family History Father HTN (hypertension) Diabetes mellitus Mother Mental health disorder Maternal Grandfather Diabetes mellitus Maternal Grandmother No problems noted. Paternal Grandmother Diabetes mellitus Asthma Breast cancer Paternal Grandfather Diabetes mellitus Paternal Aunt Breast cancer Brother Mental health disorder Sister Mental health disorder Son No problems noted. Maternal Aunt Mental health disorder Social History Housing: Apartment Patient Tobacco Use Status: Former Tobacco user e-Cigarette/Vaping Use: Currently Using service: No Current occupational status: employed Current occupation: Clinical Aide Current occupational exposures/hazards: Yes Cognitive needs: No Hearing needs: No Vision needs: Yes Review of Systems Const All systems reviewed & are unremarkable except as noted in HPI and below Physical Exam Vital Signs: Last Vital Signs Temp 98.2 F 05/28/25 09:09 Pulse 80 05/28/25 09:09 BP 122/84 05/28/25 09:09 Pulse Ox 95 05/28/25 09:09 Oxygen Delivery Method Room Air 05/28/25 09:09 BMI result Body Mass Index 45.1 Assessment & Plan Assessment & Plan (1) URI with cough and congestion: Code(s): J06.9 - Acute upper respiratory infection, unspecified Plan Most likely URI vs allergic rhinitis vs sinusitis vs flu vs RSV plan - will order a resp panel - will call her with the results and adjust the treatment accordingly - Continue using Lisa as needed for symptom relief. - Consider prednisone if symptoms worsen, as per previous management. - Discussed the use of an inhaler for wheezing, but the patient declined due to past adverse reactions. - Start Augmentin as needed for her symptoms per pt request - Advised to monitor symptoms and consider alternative management if wheezing persists. - Encouraged continued reduction in smoking to alleviate respiratory symptoms. Orders: Orders Resp Pathogen Panel - [facility] [place] Today J06.9 - Acute upper respiratory infection, unspecified Medications: New prednisone 40 mg (2 x 20 mg) PO DAILY 10 tabs 0RF 5 days amoxicillin-pot clavulanate 875-125 mg 1 tab PO Q12H 14 tabs 0RF Coding Level of Care Code Est Pt Level 3 (60704) Diagnoses URI with cough and congestion J06.9
--- OUTSIDE RECORDS SUMMARY | 2025-05-28 09:59 | XMS_ITS | Clinical Summary ---
Author Organization [facility] Address [address] [address] Phone Care Team Providers Care Baking Powder Mixer Name Role Phone Tomy Almodovar ORNAMENTAL PLASTER STICKER Primary Care Provider + Social History Tobacco Use Types Packs/Day Years Used Date Smoking Tobacco: Never Assessed Education Answer Date Recorded Are you interested in more education? Not on edilson e 11/13/2023 Are you concerned about learning? Not on file 11/13/2023 No 11/13/2023 No 11/13/2023 Digital Access Answer Date Recorded No 11/13/2023 No 11/13/2023 Reliable internet access at home? Not on file 11/13/2023 Device with a working camera? Not on file Comments Unknown Sex and Gender Information Value Date Recorded Sex Assigned at Not on file Legal Sex Female 2:42 PM EDT Gender Identity Not on file Sexual Orientation Not on file Plan of Treatment Not on file Medical Devices Not on file Insurance [facility] PCP [facility] [employer] NON NSPG PCP S[employer] [employer] NON NSPG PCP S[employer] NON NSPG PCP [facility] Care Teams Baking Powder Mixer Relationship Specialty Start Date End Date Tomy Almodovar NP [address] [place] [address] PCP - General Nurse Practitioner 11/13/23 Additional Source Comments The information contained in this document represents components of the legal health record. It is not the complete legal health record.[facility]
--- OUTSIDE RECORDS SUMMARY | 2025-05-28 09:59 | XMS_ITS | Clinical Summary ---
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 90 tablet 3 5 Active Encounters Date Type Department Care Team Description 04/06/2025 10:56 PM EDT - 04/07/2025 12:02 AM EDT Emergency [facility] Emergency [address] [place] [id number] Dave Sandoval MD Acute cystitis with hematuria (Primary Dx) Discharge Disposition: Home or Self Care from Last 3 Months Surgical History Surgery [...] Sexual Orientation Not on file Obstetrics History * This document contains information received from the source organization and may not represent a complete record from that organization. Para Term AB IAB SAB Ectopic Multiple Livin g Live Births 3 1 1 1 1 Date Outcome GA Total Labor Labor/2nd/3rd Weight Sex Type Anes PTL Gloria A1 A5 Name Clin 8 2008 Term 38w 2d 4054 g (143 oz) M CS-LT ranv Epidur al N Livin g 8 9 [facility] Delivery Location:[facility] Comments:OP, failed la bor stimulation after SROM Last Filed Vital Signs Vital Sign Reading Time Taken Comments Blood Pressure 108/76 04/06/2025 8:01 PM EDT Pulse 100 04/06/2025 8:01 PM EDT Temperature 37 C (98.6 F) 04/06/2025 8:01 PM EDT Respiratory Rate 18 04/06/2025 8:01 PM EDT Oxygen Saturation 98% 04/06/2025 8:01 PM EDT Inhaled Oxygen Concentration - - Weight 90.7 kg (200 lb) 04/06/2025 8:01 PM EDT Height 170.2 cm (5' 7 ) 04/06/2025 8:01 PM EDT Body Mass Index 31.32 04/06/2025 8:01 PM EDT Plan of Treatment Health Maintenance Due Date Last Done Comments Hepatitis B Vaccines (1 of 3 - 19+ 3-dose series) 2005 HPV Vaccines (1 - 3-dose SCDM series) 2013 DTaP,Tdap,and Td Vaccines (2 - Td or Tdap) 01/16/2019 01/16/2009 HIV Screening 07/11/2022 Hepatitis C Screening 07/11/2022 Social Influencers of Health Screening 07/11/2022 Depression Screening 08/13/2024 COVID-19 Vaccine ( season) 2025 Influenza Vaccine (#1) 2025 7, 05/06/2013, 05/31/2012, Additional history exists Cervical Cancer Screening: Pap Smear 04/30/2026 04/30/2023 RSV Immunization Adult Patients (1 - 1-dose 75+ series) 2061 HIB Vaccines Aged Out No longer eligi [...] 5 Years) and At-Risk Patients (6 to 49 Years) Aged Out No longer eligible based on patient's age to complete this topic RSV Immunization Patients Under 20 months Aged Out No longer eligible based on patient's age to complete this topic Varicella Vaccines Aged Out No longer eligible based on patient's age to complete this topic Procedures Procedure Name Priority Date/Time Associated Diagnosis Comments ANDRADE URINE CULTURE TUBE STAT 04/06/2025 9:35 PM EDT URINALYSIS WITH REFLEX MICROSCOPIC AND CULTURE STAT 04/06/2025 9:35 PM EDT URINALYSIS WITH REFLEX MICROSCOPIC AND CULTURE STAT 04/06/2025 9:35 PM EDT CULTURE URINE STAT 04/06/2025 9:35 PM EDT PAP SMEAR Routine 04/30/2023 from Last 3 Months or Most Recently Relevant to Health Maintenance Results * (ABNORMAL) Urinalysis with reflex microscopic and culture (04/06/2025 9:35 PM EDT) Specific [place] Urine 1.007 1.003 - 1.030 LAB URINALYSIS - AUTOMATED METHOD 04/06/2025 10:[address] [facility] pH, Urine 6.5 5.0 - 8.0 pH LAB URINALYSIS - AUTOMATED METHOD 04/06/2025 10:[address] [facility] Leukocytes, Urine Moderate(A) Negative LAB URINALYSIS - AUTOMATED METHOD 04/06/2025 10:[address] [facility] Nitrite, Urine Negative Negative LAB URINALYSIS - AUTOMATED METHOD 04/06/2025 10:[address] [facility] Protein, Urine Negative <=Trace mg/dL LAB URINALYSIS - AUTOMATED METHOD 04/06/2025 10:[address] [facility] Glucose, Urine Negative Negative mg/dL LAB URINALYSIS - AUTOMATED METHOD 04/06/2025 10:[address] [facility] Ketones, Urine Negative Negative mg/dL LAB URINALYSIS - AUTOMATED METHOD 04/06/2025 10:[address] [facility] Urobilinogen , Urine 0.2 0.2 - 1.0 mg/dL LAB URINALYSIS - AUTOMATED METHOD 04/06/2025 10:[address] [facility] Bilirubin, Urine Negative Negative LAB URINALYSIS - AUTOMATED METHOD 04/06/2025 10:[address] [facility] Blood, Urine Trace(A) Negative LAB URINALYSIS - AUTOMATED METHOD 04/06/2025 10:25 PM EDT [facility] RBC, Urine 1 0 - 4 /HPF 04/06/2025 10:25 PM EDT [facility] WBC, Urine 57(H) 0 - 4 /HPF 04/06/2025 10:25 PM EDT [facility] Squamous Epithelial, Urine 61(H) 0 - 60 /LPF 04/06/2025 10:25 PM EDT [facility] Non-Squamous Epithelial, Urine 2-5 Transitional epithelial cells. /LPF 04/06/2025 10:25 PM EDT [facility] Bacteria, Urine Negative Negative /HPF 04/06/2025 10:25 PM EDT [facility] Hyaline Casts, Urine 0 0 - 3 /LPF 04/06/2025 10:25 PM EDT [facility] Urine Urine specimen obtained by clean catch procedure / Unknown Non-blood Collection / Unknown 04/06/2025 9:35 PM EDT 04/06/2025 9:55 PM EDT Dylan Mendoza MD LAB URINE ORDERABLES Final Result [facility] [address] [place] [address], * Andrade urine culture tube (04/06/2025 9:35 PM EDT) Extra Tube Hold for add-ons. 04/06/2025 11:01 PM EDT [facility] Comment:Auto resulted. Urine Urine specimen obtained by clean catch procedure / Unknown Non-blood Collection / Unknown 04/06/2025 9:35 PM EDT 04/06/2025 9:55 PM EDT Dylan Mendoza MD LAB URINE ORDERABLES Final Result [facility] [address] [place] [address], * Culture urine (04/06/2025 9:35 PM EDT) Culture, Urine <10,000 cfu/mL Mixed bacterial jessica 04/08/2025 9:56 AM EDT [facility] Urine Urine specimen obtained by clean catch procedure / Unknown Non-blood Collection / Unknown 04/06/2025 9:35 PM EDT 04/06/2025 10:25 PM EDT Dylan Mendoza MD LAB MICROBIOLOGY - GENERAL ORDERABLES Final Result Performing Organization Address [facility]/ZIP Co de Phone Number [facility] [address] [place] [address], * Pap smear (04/30/2023) 04/30/2023 Narrative HISTORICAL TESTING LAB RESULTING AGENCY - 05/14/2023 6:40 AM EDT [id number] THINPREP PAP, IMAGED: NEGATIVE FOR SQUAMOUS INTRAEPITHELIAL LESION AND MALIGNANCY . RICHARD DOBSON(ASCP) (CASE ELECTRONICALLY SIGNED 05 12 2023) RESULT OF APTIMA HIGH RISK HPV ASSAY: HIGH RISK HPV: NEGATIVE (SEROTYPES 16,18,31,33,35,39,45,51,52,56,58,59,66,68) COMPLETED ON 2023-05-03 ADEQUACY: SATISFACTORY ENDOCERVICAL/TRANSFORMATION ZONE COMPONENT PRESENT. SOURCE: THINPREP PAP HPV ANY DX: REFLEX 16 AND 18, CERVICAL, IMAGED CLINICAL INFORMATION: HPV ANY DIAGNOSIS. PAP HX NEGATIVE, [[id number]] Promise De Leon CNM LAB CYTOLOGY ORDERABLES Final Result HISTORICAL TESTING LAB RESULTING AGENCY from Last 3 Months or Most Recently Relevant to Health Maintenance Insurance [employer] Care Teams Manpower Development Manager Relationship Specialty Start Date End Date Tomy Almodovar NP [address], [place] PCP - General Family Medicine 10/14/24
== END 2025-05-28 09:52 | disposition home or self-care (01) ==
PROVIDERS: PCP Nurse Practitioner Family; Visit Provider Physician Assistant Medical
DX: J06.9 Acute upper respiratory infection, unspecified (principal)